=== PATIENT | male | born 1945 | race Caucasian/White ===

== ENCOUNTER 2018-09-10 11:53 | Emergency (ER) | payer MEDICARE, OTHER ==
[~2018-09-10] VITALS: Ht 167.6 cm; Wt 73.0 kg
[2018-09-10] MEDS ORDERED: NS IV 500 ML 500 ML IV ONE (12:26)
[2018-09-10 12:34] LABS: BASOPHILS % (AUTO) 0 % (0-10); EOSINOPHILS # (AUTO) 0.1 10^3/uL (0.0-0.3); EOSINOPHILS % (AUTO) 1 % (0-10); HEMATOCRIT 43 % (40-54); HEMOGLOBIN 14.7 G/DL (13.3-17.7); LYMPHOCYTES % (AUTO) 25 % (12-44); MEAN CORPUSCULAR HEMOGLOBIN 32 PG (25-34); MEAN CORPUSCULAR HGB CONC 35 G/DL (32-36); MEAN CORPUSCULAR VOLUME 92 FL (80-99); MEAN PLATELET VOLUME 9.8 FL (7.4-10.4); MONOCYTES # (AUTO) 0.7 X 10^3 (0.0-1.0); MONOCYTES % (AUTO) 9 % (0-12); NEUTROPHILS % (AUTO) 64 % (42-75); PLATELET COUNT 206 10^3/uL (130-400); RED CELL DISTRIBUTION WIDTH 12.8 % (10.0-14.5); WHITE BLOOD COUNT 7.8 10^3/uL (4.3-11.0)
--- NOTE | 2018-09-10 12:45 | Diagnostic Imaging Report ---
INDICATION: Syncope. COMPARISON: None. FINDINGS: Single view of the chest demonstrates minimal cardiac enlargement. Lungs are clear. There is a benign-appearing nodule in the right base. There is no pneumothorax or effusion. The pacemaker is stable. Sternotomy wires are midline. IMPRESSION: Cardiac enlargement without pulmonary edema or infiltrate. Dictated by: Dictated on workstation # [id number]
[2018-09-10 12:56] LABS: ALANINE AMINOTRANSFERASE 20 U/L (0-55); ALBUMIN 3.9 GM/DL (3.2-4.5); ALKALINE PHOSPHATASE 50 U/L (40-136); BILIRUBIN,TOTAL 0.7 MG/DL (0.1-1.0); BUN/CREATININE RATIO 24; CARBON DIOXIDE 24 MMOL/L (21-32); CHLORIDE 105 MMOL/L (98-107); CREATININE SERUM 0.96 MG/DL (0.60-1.30); GFR ESTIMATED > 60; GLUCOSE 88 MG/DL (70-105); POTASSIUM 3.7 MMOL/L (3.6-5.0); SODIUM 140 MMOL/L (135-145)
[2018-09-10 13:43] LABS: BILIRUBIN,URINE NEGATIVE (NEGATIVE); CLARITY,URINE CLEAR; COLOR,URINE YELLOW; GLUCOSE, URINE (UA) NEGATIVE (NEGATIVE); KETONES,URINE NEGATIVE (NEGATIVE); LEUKOCYTE ESTERASE ,URINE NEGATIVE (NEGATIVE); NITRITE,URINE NEGATIVE (NEGATIVE); PH,URINE 5 (5-9); PROTEIN,URINE NEGATIVE (NEGATIVE); UROBILINOGEN,URINE 1 MG/DL (NORMAL)
[2018-09-10 13:50] LABS: BACTERIA,URINE NEGATIVE /HPF
[2018-09-10] MEDS ORDERED: IOHEXOL 350 MG/ML 150 ML (OMNIPAQUE 350) VIAL IV ONE (14:15)
[2018-09-10] MEDS ORDERED: RECEIVED CONTRAST (Hold Metformin) IV SCH (14:15)
[2018-09-10] MEDS ORDERED: CATHETER FLUSH 10 ML SYR IV PRN (14:15)
[2018-09-10] MEDS ORDERED: NS 100 ML (IVPB) BAG IV ONE (14:15)
--- NOTE | 2018-09-10 15:14 | Diagnostic Imaging Report ---
PROCEDURE: CT angiography of the chest with contrast and CT abdomen and pelvis with contrast. TECHNIQUE: Multiple contiguous axial images were obtained through the chest, abdomen and pelvis after administration of intravenous contrast. Reconstructed MIP CT angiography acquisitions of the aorta were then performed. INDICATION: History of aneurysm and two heart surgeries. Pacemaker. Dizziness, lightheaded. CORRELATION STUDY: None. FINDINGS: Patient is poststernotomy. 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 Heart size is mildly enlarged. No pericardial effusion. A few mildly prominent but non-pathologically enlarged mediastinal lymph nodes are present. Calcified granulomas are present within the mediastinum. Right-sided pacemaker. There are surgical changes of the aortic valve. The thoracic aorta demonstrates mild wall calcification. No significant aneurysm dilatation. No intraluminal filling defect to reflect dissection. Normal branching pattern at the level of the aortic arch. The abdominal aorta demonstrates mild wall calcification and atheromatous changes to be present. The [place] demonstrate no aneurysmal dilatation. No intraluminal abnormality to reflect dissection. Celiac trunk, superior mesenteric artery and bilateral renal arteries along with inferior mesenteric artery are patent at their origins. Moderate calcification at the aortic bifurcation. Moderate calcification of the common, internal and external iliac arteries is present. No abnormal periaortic fluid collection. The lung pacheco have calcified granuloma. No significant lobar consolidating infiltrate. No pleural effusion. Minimal pleural thickening. Diffuse low attenuation parenchyma suggestive of fatty steatosis. Cholecystectomy clips. Spleen, pancreas and adrenal glands are unremarkable. Low-density mass in the right kidney compatible with a cyst. Renal parenchyma is otherwise unremarkable. No hydronephrosis. The gastrointestinal tract demonstrates no obstruction. Colonic diverticulosis but no evidence for acute diverticulitis. Urinary bladder is unremarkable. Prostate gland is unremarkable for the patient's age. S-type thoracolumbar scoliotic curvature along with advanced degenerative changes about the lumbar spine. Posterior fusion hardware at L3-S1. IMPRESSION: 1. CTA of the chest, abdomen and pelvis demonstrates the thoracic aorta to have mild wall calcification. No significant aneurysmal or evidence for dissection. 2. Negative for acute abnormality about the chest, abdomen and/or pelvis. Dictated by: Dictated on workstation # [id number]
--- NOTE | 2018-09-10 15:19 | ED General ---
General Chief Complaint: Dizziness/Syncope Stated Complaint: BP 161/89 /LIGHTHEADED/NAUSEA Nursing Triage Note: PT TO ED W/ C/O LIGHTHEADEDNESS, DIZZINESS, SHAKING ONSET WHILE AT [facility] THIS AM. REPORTS HAD BP CHECKED W/ ONSET OF SYMPTOMS ET IT WAS 161/89. PT DOES REPORT HX OF AAA ET CABG W/IN THE LAST 4 YRS. NO OTHER C/O VOICED AT THIS TIME. Nursing Sepsis Screen: No Definite Risk Source of Information: Patient Exam Limitations: No Limitations History of Present Illness Date Seen by Provider: Sep 10, 2018 Time Seen by Provider: 13:40 Initial Comments Here with report of dizziness, weakness and abdominal discomfort today while at [facility]. His blood pressure was noted to be high after that. Does have history of aortic aneurysm that apparently was at the takeoff from the heart. He had that repaired. He also had prior stenting due to cardiac problems prior to that. Denies vomiting but was nauseated. Denies diarrhea. Reports eating and drinking okay but states that he gets accused of being dehydrated quite a bit. Timing/Duration: 1 Hour, Changing Over Time, Other (better now) Severity: Moderate Associated Systoms: No Chest Pain, No Fever/Chills; Nausea/Vomiting; No Shortness of Air; Weakness Allergies and Home Medications Allergies Coded Allergies: No Known Drug Allergies (Unverified , 09/10/18) Patient Home Medication List Home Medication List Reviewed: Yes Review of Systems Review of Systems Constitutional: see HPI EENTM: no symptoms reported Respiratory: No short of breath, No wheezing Cardiovascular: No chest pain, No edema Gastrointestinal: abdominal pain; No nausea, No vomiting Genitourinary: no symptoms reported Musculoskeletal: no symptoms reported Skin: no symptoms reported Psychiatric/Neurological: No Symptoms Reported All Other Systems Reviewed Negative Unless Noted: Yes Past Pjhonhz-Ohiyxm-Jacbyf Hx Past Med/Social Hx: Reviewed Nursing Past Med/Soc Hx Patient Social History Alcohol Use: Denies Use Recreational Drug Use: No Smoking Status: Former Smoker Type Used: Cigarettes Former Smoker, Quit: May 04, 2015 Recent Foreign Travel: No Contact w/Someone Who Travel: No Recent Infectious Disease Expo: No Recent Hopitalizations: No Past Medical History Surgeries: Yes (AAA, RASHAUN, ROTATOR CUFF, BACK, HERNIA REPAIR) CABG, Vascular Surgery Respiratory: No Cardiac: Yes (AAA, CABG) Neurological: Yes TIA Genitourinary: No Gastrointestinal: No Musculoskeletal: Yes Degenerate Disk Disease Endocrine: No HEENT: Yes Cataract Cancer: Yes Skin Psychosocial: No Integumentary: No Family Medical History Reviewed Nursing Family Hx Physical Exam Vital Signs Vital Signs - First Documented 09/10/18 11:58 Temp 96.5 Pulse 68 Resp 18 B/P (MAP) 139/88 (105) Pulse Ox 95 O2 Delivery Room Air Capillary Refill : Less Than 3 Seconds Height, Weight, BMI Height: 5'6.00" Weight: 161lbs. oz. 73.191656fh; BMI Method:Stated General Appearance: No Apparent Distress, WD/WN HEENT: PERRL/EOMI, Pharynx Normal Neck: Non Tender, Supple Respiratory: Lungs Clear, Normal Breath Sounds Cardiovascular: Regular Rate, Rhythm, No Murmur Gastrointestinal: Non Tender, Soft Back: Normal Inspection, No CVA Tenderness, No Vertebral Tenderness Extremity: Normal Capillary Refill, Normal Inspection, Normal Range of Motion, Non Tender Neurologic/Psychiatric: Alert, Oriented x3 Skin: Normal Color, Warm/Dry Progress/Results/Core Measures Suspected Sepsis Recent Fever Within 48 Hours: No Infection Criteria Present: None New/Unexplained Altered Menta: No Sepsis Screen: No Definite Risk SIRS Temperature:96.5 Pulse: 68 Respiratory Rate: 18 Laboratory Tests 09/10/18 12:25: White Blood Count 7.8 Blood Pressure 139 /88 Mean: 105 Laboratory Tests 09/10/18 12:25: Creatinine 0.96, Platelet Count 206, Total Bilirubin 0.7 Results/Orders Lab Results Laboratory Tests Test 09/10/18 12:25 09/10/18 13:32 Range/Units White Blood Count 7.8 4.3-11.0 10^3/uL Red Blood Count 4.63 4.35-5.85 10^6/uL Hemoglobin 14.7 13.3-17.7 G/DL Hematocrit 43 40-54 % Mean Corpuscular Volume 92 80-99 FL Mean Corpuscular Hemoglobin 32 25-34 PG Mean Corpuscular Hemoglobin Concent 35 32-36 G/DL Red Cell Distribution Width 12.8 10.0-14.5 % Platelet Count 206 130-400 10^3/uL Mean Platelet Volume 9.8 7.4-10.4 FL Neutrophils (%) (Auto) 64 42-75 % Lymphocytes (%) (Auto) 25 12-44 % Monocytes (%) (Auto) 9 0-12 % Eosinophils (%) (Auto) 1 0-10 % Basophils (%) (Auto) 0 0-10 % Neutrophils # (Auto) 5.0 1.8-7.8 X 10^3 Lymphocytes # (Auto) 2.0 1.0-4.0 X 10^3 Monocytes # (Auto) 0.7 0.0-1.0 X 10^3 Eosinophils # (Auto) 0.1 0.0-0.3 10^3/uL Basophils # (Auto) 0.0 0.0-0.1 10^3/uL D-Dimer 1.04 H 0.00-0.49 UG/ML Sodium Level 140 135-145 MMOL/L Potassium Level 3.7 3.6-5.0 MMOL/L Chloride Level 105 98-107 MMOL/L Carbon Dioxide Level 24 21-32 MMOL/L Anion Gap 11 5-14 MMOL/L Blood Urea Nitrogen 23 H 7-18 MG/DL Creatinine 0.96 0.60-1.30 MG/DL Estimat Glomerular Filtration Rate > 60 BUN/Creatinine Ratio 24 Glucose Level 88 70-105 MG/DL Calcium Level 9.0 8.5-10.1 MG/DL Corrected Calcium 9.1 8.5-10.1 MG/DL Total Bilirubin 0.7 0.1-1.0 MG/DL Aspartate Amino Transf (AST/SGOT) 19 5-34 U/L Alanine Aminotransferase (ALT/SGPT) 20 0-55 U/L Alkaline Phosphatase 50 40-136 U/L Troponin I < 0.028 <0.028 NG/ML Total Protein 7.0 6.4-8.2 GM/DL Albumin 3.9 3.2-4.5 GM/DL Urine Color YELLOW Urine Clarity CLEAR Urine pH 5 5-9 Urine Specific [place] 1.020 1.016-1.022 Urine Protein NEGATIVE NEGATIVE Urine Glucose (UA) NEGATIVE NEGATIVE Urine Ketones NEGATIVE NEGATIVE Urine Nitrite NEGATIVE NEGATIVE Urine Bilirubin NEGATIVE NEGATIVE Urine Urobilinogen 1 NORMAL MG/DL Urine Leukocyte Esterase NEGATIVE NEGATIVE Urine RBC (Auto) NEGATIVE NEGATIVE Urine RBC NONE /HPF Urine WBC NONE /HPF Urine Squamous Epithelial Cells NONE /HPF Urine Crystals NONE /LPF Urine Bacteria NEGATIVE /HPF Urine Casts NONE /LPF Urine Mucus NEGATIVE /LPF Urine Culture Indicated NO My Orders Orders - JULIANA LIANG MD Cbc With Automated Diff (09/10/18 12:26) Comprehensive Metabolic Panel (09/10/18 12:26) Fibrin Degradation Products (09/10/18 12:26) Troponin I (09/10/18 12:26) Ua Culture If Indicated (09/10/18 12:26) Chest 1 View, Ap/Pa Only (09/10/18 12:26) Saline Lock/Iv-Start (09/10/18 12:26) Ns Iv 500 Ml (Sodium Chloride 0.9%) (09/10/18 12:26) Ekg Tracing (09/10/18 12:26) Ct Angio Chst/Abd/Pelv W (09/10/18 13:54) Iohexol Injection (Omnipaque 350 Mg/Ml 1 (09/10/18 14:15) Contrast Received (Contrast Received) (09/10/18 14:15) Sodium Chloride Flush (Catheter Flush Sy (09/10/18 14:15) Ns (Ivpb) (Sodium Chloride 0.9% Ivpb Bag (09/10/18 14:15) Medications Given in ED Current Medications Medications Dose Ordered Sig/Sonam Route Start Time Stop Time Status Last Admin Dose Admin Iohexol 150 ml ONCE ONCE IV 09/10/18 14:15 09/10/18 14:16 DC 09/10/18 14:30 125 ML Sodium Chloride 10 ml NEEDED PRN IV 09/10/18 14:15 09/10/18 14:30 10 ML Sodium Chloride 100 ml ONCE ONCE IV 09/10/18 14:15 09/10/18 14:16 DC 09/10/18 14:30 80 ML Sodium Chloride 500 ml @ 0 mls/hr Q0M ONCE IV 09/10/18 12:26 09/10/18 12:29 DC 09/10/18 13:09 500 MLS/HR Vital Signs/I&O 09/10/18 11:58 Temp 96.5 Pulse 68 Resp 18 B/P (MAP) 139/88 (105) Pulse Ox 95 O2 Delivery Room Air Capillary Refill : Less Than 3 Seconds Blood Pressure Mean: 105 Progress Note : Progress Note Seen and evaluated. IV, labs, EKG, chest x-ray and normal saline 500 mL bolus ordered. UA ordered. We will go ahead and get a CT angiogram chest, abdomen and pelvis due to aortic aneurysm history and new concerns. Patient and family were very appreciative of that. Monitor patient. 1530: Patient overall much improved. No significant findings on CT. Patient states that he can drink and we will let him continue to hydrate at home. Discharged home with return precautions. Patient verbalize understanding instructions and agreement with plan. ECG Initial ECG Impression Date: Sep 10, 2018 Initial ECG Impression Time: 12:16 Initial ECG Rate: 66 Comment Ventricular paced rhythm at 66. Normal axis. No evidence of ST elevation [place]. No previous available for comparison. Interpreted by me. Diagnostic Imaging Diagonstic Imaging: Xray Plain Films/CT/US/NM/MRI: chest Comments NAME: RHONDA GONZALES MED REC#: [id number] PT STATUS: REG ER : 1945 PHYSICIAN: JULIANA LIANG MD ADMIT DATE: 09/10/18/ER Signed Date of Exam: 09/10/18 CHEST 1 VIEW, AP/PA ONLY INDICATION: Syncope. COMPARISON: None. FINDINGS: Single view of the chest demonstrates minimal cardiac enlargement. Lungs are clear. There is a benign-appearing nodule in the right base. There is no pneumothorax or effusion. The pacemaker is stable. Sternotomy wires are midline. IMPRESSION: Cardiac enlargement without pulmonary edema or infiltrate. Dictated by: Dictated on workstation # [id number] Dict: 09/10/18 1240 Trans: 09/10/18 1330 Interpreted by: STUART GOMEZ Electronically signed by: STUART GOMEZ 09/10/18 1330 Diagonstic Imaging: CT Plain Films/CT/US/NM/MRI: chest, abdomen, pelvis Comments [facility]. [place], [place] NAME: RHONDA GONZALES Danielle MED REC#: [id number] PT STATUS: REG ER : 1945 PHYSICIAN: JULIANA LIANG MD ADMIT DATE: 09/10/18/ER Draft Date of Exam:09/10/18 CT ANGIO CHST/ABD/PELV W PROCEDURE: CT angiography of the chest with contrast and CT abdomen and pelvis with contrast. TECHNIQUE: Multiple contiguous axial images were obtained through the chest, abdomen and pelvis after administration of intravenous contrast. Reconstructed MIP CT angiography acquisitions of the aorta were then performed. INDICATION: History of aneurysm and two heart surgeries. Pacemaker. Dizziness, lightheaded. CORRELATION STUDY: None. FINDINGS: Patient is poststernotomy. 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 Heart size is mildly enlarged. No pericardial effusion. A few mildly prominent but non-pathologically enlarged mediastinal lymph nodes are present. Calcified granulomas are present within the mediastinum. Right-sided pacemaker. There are surgical changes of the aortic valve. The thoracic aorta demonstrates mild wall calcification. No significant aneurysm dilatation. No intraluminal filling defect to reflect dissection. Normal branching pattern at the level of the aortic arch. The abdominal aorta demonstrates mild wall calcification and atheromatous changes to be present. The [place] demonstrate no aneurysmal dilatation. No intraluminal abnormality to reflect dissection. Celiac trunk, superior mesenteric artery and bilateral renal arteries along with inferior mesenteric artery are patent at their origins. Moderate calcification at the aortic bifurcation. Moderate calcification of the common, internal and external iliac arteries is present. No abnormal periaortic fluid collection. The lung pacheco have calcified granuloma. No significant lobar consolidating infiltrate. No pleural effusion. Minimal pleural thickening. Diffuse low attenuation parenchyma suggestive of fatty steatosis. Cholecystectomy clips. Spleen, pancreas and adrenal glands are unremarkable. Low-density mass in the right kidney compatible with a cyst. Renal parenchyma is otherwise unremarkable. No hydronephrosis. The gastrointestinal tract demonstrates no obstruction. Colonic diverticulosis but no evidence for acute diverticulitis. Urinary bladder is unremarkable. Prostate gland is unremarkable for the patient's age. S-type thoracolumbar scoliotic curvature along with advanced degenerative changes about the lumbar spine. Posterior fusion hardware at L3-S1. IMPRESSION: 1. CTA of the chest, abdomen and pelvis demonstrates the thoracic aorta to have mild wall calcification. No significant aneurysmal or evidence for dissection. 2. Negative for acute abnormality about the chest, abdomen and/or pelvis. Dictated on workstation # [id number] Dict: 09/10/18 1448 Trans: 09/10/18 1514 [id number] Interpreted by: BRANDY LEACH DO Electronically signed by: Departure Impression Primary Impression: Abdominal pain Qualified Codes: R10.9 - Unspecified abdominal pain Additional Impressions: Dizziness Labile blood pressure Disposition: HOME, SELF-CARE Condition: Improved Departure-Patient Inst. Decision time for Depature: 15:35 Referrals: FELICIA LAIRD MD (PCP/Family) Primary Care Physician Patient Instructions: Dizziness, Nonvertigo, (DC), Generalized Weakness (DC) Add. Discharge Instructions: All discharge instructions reviewed with patient and/or family. Voiced understanding. Clear liquids or light diet tonight and then advance as tolerated. Follow up with your Dr. in a few days for recheck. Return for worse pain, fever, vomiting , weakness, breathing problems or other concerns as needed. Continue previously prescribed medicines as directed. JULIANA LIANG MD Sep 10, 2018 15:19
--- NOTE | 2018-09-10 15:21 | NUR ---
PT RESTING QUIETLY, FAMILY AT BEDSIDE. NO C/O VOICED
--- NOTE | 2018-09-10 15:35 | NUR ---
PT UP TO BR AT THIS TIME.
--- NOTE | 2018-09-10 15:40 | NUR ---
HL DISCONTINUED BY THIS RN. REGISTRATION AT BEDSIDE.
[2018-09-10 15:46] VITALS: BP 125/78
--- NOTE | 2018-09-10 15:46 | NUR ---
PT DISCHARGED TO HOME W/ INSTRUCTIONS. PT TO CONTINUE MEDS DIRECTED, F/U W/ PCP ET RETURN IF SYMPTOMS CHANGE OR GET WORSE. UNDERSTANDING VOICED. NO QUESTIONS.
== END 2018-09-10 15:46 | disposition home or self-care (01) ==
LOC: ER 11:55
DX: R10.9 Unspecified abdominal pain (principal); R42 Dizziness and giddiness; R03.0 Elevated blood-pressure reading, without diagnosis of hypertension; Z86.79 Personal history of other diseases of the circulatory system; Z87.891 Personal history of nicotine dependence; Z95.1 Presence of aortocoronary bypass graft; Z98.890 Other specified postprocedural states; Z86.73 Personal history of transient ischemic attack (TIA), and cerebral infarction without residual deficits; Z85.828 Personal history of other malignant neoplasm of skin
CPT/HCPCS: 36415; 71045; 71275; 74174; 80053; 81000; 84484; 85025; 85379

== ENCOUNTER → 2018-10-20 | Emergency (ER) | payer MEDICARE, OTHER ==
[~2018-10-20] VITALS: Ht 167.6 cm; Wt 74.4 kg
[~2018-10-20] MED LIST: IOHEXOL 350 MG/ML 150 ML (OMNIPAQUE 350) VIAL IV ONE; NS 50 ML (IVPB) BAG IV ONE; ONDANSETRON 4 MG/2 ML (SDV) Z0FRAN IVP STA; PRD20T PO; methylPREDNISolone 125 MG (Solu-MEDROL) VIAL IVP ONE; morphine INJ 10 MG/ML 1ML (SYR OR VIAL) IVP STA
--- NOTE | 2018-10-20 04:36 | ED Chest Pain ---
General Chief Complaint: Chest Pain Stated Complaint: CHEST PAIN RT SIDE History of Present Illness Date Seen by Provider: Oct 20, 2018 Time Seen by Provider: 04:19 This is a 73-year-old man with a stated history of aortic dissection status post repair, CAD status post CABG, pacemaker, on Eliquis, here for right-sided chest pain with deep inspiration. He has no pain at rest, nor with regular breathing. He was treated 2 months ago for possible pneumonia when he had the same symptoms which lasted for about a week, and which had gone completely away until tonight. He does not feel short of breath. He has not had unilateral leg swelling. Denies history of blood clots. No cough or fever or hemoptysis. This is nonexertional. No lightheadedness or nausea or diaphoresis. No paresthesias in the extremities. The pain is not migratory. This does not feel like the pain he had when he had an aortic dissection. (MIGUEL ROJO DO) Allergies and Home Medications Allergies Coded Allergies: No Known Drug Allergies (Unverified , 09/10/18) Home Medications Prednisone 20 Mg Tab, 40 MG PO DAILY Prescribed by: RICCARDO BRAUN on 10/20/18 0736 Patient Home Medication List Home Medication List Reviewed: Yes (MIGUEL ROJO DO) Review of Systems Review of Systems Constitutional: no symptoms reported EENTM: No Symptoms Reported Respiratory: See HPI Cardiovascular: See HPI Gastrointestinal: No Symptoms Reported Genitourinary: No Symptoms Reported Musculoskeletal: no symptoms reported Skin: no symptoms reported Psychiatric/Neurological: No Symptoms Reported Endocrine: No Symptoms Reported Hematologic/Lymphatic: No Symptoms Reported (MIGUEL ROJO DO) Past Uhnauvl-Uwngaj-Psphxc Hx Past Med/Social Hx: Reviewed Nursing Past Med/Soc Hx (MIGUEL ROJO DO) Patient Social History Type Used: Cigarettes Former Smoker, Quit: May 04, 2015 Recent Foreign Travel: No Contact w/Someone Who Travel: No Recent Hopitalizations: No (MIGUEL ROJO DO) Past Medical History Surgeries: Yes (AAA, RASHAUN, ROTATOR CUFF, BACK, HERNIA REPAIR) CABG, Vascular Surgery Respiratory: No Cardiac: Yes (AAA, CABG) Neurological: Yes TIA Genitourinary: No Gastrointestinal: No Musculoskeletal: Yes Degenerate Disk Disease Endocrine: No HEENT: Yes Cataract Cancer: Yes Skin Psychosocial: No Integumentary: No (MIGUEL ROJO DO) Physical Exam Vital Signs Vital Signs - First Documented 10/20/18 04:35 Temp 97.9 Pulse 66 Resp 16 B/P (MAP) 155/83 (107) Pulse Ox 97 O2 Delivery Room Air (RICCARDO BRAUN MD) Vital Signs Capillary Refill : (MIGUEL ROJO DO) Height, Weight, BMI Height: 5'6.00" Weight: 161lbs. oz. 73.854923pn; BMI Method:Stated General Appearance: No Apparent Distress (no visible discomfort, smiling and laughing) HEENT: PERRL/EOMI, Moist Mucous Membranes Neck: Supple; No JVD Respiratory: Chest Non Tender, Lungs Clear, No Accessory Muscle Use, No Respiratory Distress; No Rales, No Rhonci, No Stridor, No Wheezing Cardiovascular: Regular Rate, Rhythm, No Edema, No Murmur, Normal Peripheral Pulses Gastrointestinal: Non Tender, Soft Extremity: Non Tender Neurologic/Psychiatric: Alert, Oriented x3, No Motor/Sensory Deficits, Normal Mood/Affect Skin: Warm/Dry (MIGUEL ROJO DO) Progress/Results/Core Measures Results/Orders Lab Results Laboratory Tests Test 10/20/18 04:21 Range/Units White Blood Count 7.4 4.3-11.0 10^3/uL Red Blood Count 4.88 4.35-5.85 10^6/uL Hemoglobin 15.4 13.3-17.7 G/DL Hematocrit 45 40-54 % Mean Corpuscular Volume 93 80-99 FL Mean Corpuscular Hemoglobin 32 25-34 PG Mean Corpuscular Hemoglobin Concent 34 32-36 G/DL Red Cell Distribution Width 12.5 10.0-14.5 % Platelet Count 160 130-400 10^3/uL Mean Platelet Volume 10.3 7.4-10.4 FL Prothrombin Time 15.8 H 12.2-14.7 SEC INR Comment 1.3 0.8-1.4 Activated Partial Thromboplast Time 44 H 24-35 SEC Sodium Level 139 135-145 MMOL/L Potassium Level 3.6 3.6-5.0 MMOL/L Chloride Level 100 98-107 MMOL/L Carbon Dioxide Level 21 21-32 MMOL/L Anion Gap 18 H 5-14 MMOL/L Blood Urea Nitrogen 18 7-18 MG/DL Creatinine 0.98 0.60-1.30 MG/DL Estimat Glomerular Filtration Rate > 60 BUN/Creatinine Ratio 18 Glucose Level 112 H 70-105 MG/DL Calcium Level 9.0 8.5-10.1 MG/DL Corrected Calcium 9.0 8.5-10.1 MG/DL Total Bilirubin 0.6 0.1-1.0 MG/DL Aspartate Amino Transf (AST/SGOT) 18 5-34 U/L Alanine Aminotransferase (ALT/SGPT) 13 0-55 U/L Alkaline Phosphatase 52 40-136 U/L Troponin T 15 <=15 NG/L Total Protein 7.2 6.4-8.2 GM/DL Albumin 4.0 3.2-4.5 GM/DL (RICCARDO BRAUN MD) My Orders Orders - RICCARDO BRAUN MD Methylprednisolone Sod Succ (Solu-Medrol (10/20/18 07:45) (RICCARDO BRAUN MD) Medications Given in ED Current Medications Medications Dose Ordered Sig/Sonam Route Start Time Stop Time Status Last Admin Dose Admin Iohexol 125 ml ONCE ONCE IV 10/20/18 04:45 10/20/18 04:46 DC 10/20/18 06:02 125 ML Sodium Chloride 50 ml ONCE ONCE IV 10/20/18 04:45 10/20/18 04:46 DC 10/20/18 06:03 40 ML (RICCARDO BRAUN MD) Vital Signs/I&O 10/20/18 04:35 Temp 97.9 Pulse 66 Resp 16 B/P (MAP) 155/83 (107) Pulse Ox 97 O2 Delivery Room Air (RICCARDO BRAUN MD) Progress Progress Note #1: Progress Note Patient is very well-appearing and not in visible distress or discomfort. Given history I think it is prudent to obtain a CT angiogram to rule out aortic graft leak. Details are somewhat limited, there is a CT angiogram from 1 month ago that showed the abdominal aorta to be nonaneurysmal and demonstrated the aortic valve status post repair. Symptoms are atypical for ACS. He is low risk for PE and is currently anticoagulated. Pneumonia is a consideration as is pericarditis. Treated with a low-dose of morphine, we will continue to monitor. Progress Note #2: Progress Note BP improved to the 130s over 70s. Pain improved. Care signed out to oncoming provider at 6 AM with CTA read pending. (MIGUEL ROJO DO) Progress Note #1: Time: 06:15 Progress Note I assumed care from Dr. Rojo at 0600 shift change. I reviewed record and test results so far. I agree with paced rhythm on ECG and no acute finding on CXR. Labs show Troponin T is 15 so it is at upper limit of normal. CBC still pending. Pt returning from CTA chest shortly after my arrival in the Department and reading pending. Progress Note #2: Time: 07:30 Progress Note I spent time in the room discussing results with the patient and his . His CBC came back and was normal without acute significant abnormality. CTA chest preliminary report was negative for PE. There was no definite infiltrate or consolidation. He might have a trace amount of pulmonary edema in his bases. Will have him check with the Youth Probation Officer he follows with in [place]. Have him check back if he has more problems sooner. Will try steroid for a couple of days to see if that helps his pleuritic pain. His string top sealer may want to have him get an updated echocardiogram. if he has worsening pain or more problems check back sooner. (RICCARDO BRAUN MD) EKG : Comment 0423: Regular narrow complex rhythm rate of 63 with a normal axis, approximately normal precordial R-wave progression. Nonspecific change to the T- wave in the lateral precordial leads with artifact in the lateral limb leads. (MIGUEL ROJO DO) Diagnostic Imaging Diagonstic Imaging: Xray Plain Films/CT/US/NM/MRI: chest Comments EP interpretation: Trachea is midline no obvious bony abnormality. There is central vascular congestion and calcification of the aortic knob, otherwise the cardiomediastinal silhouette is unremarkable. The diaphragmatic borders are sharp in the costophrenic angles are well visualized with no effusions. No pneumothoraces. There is a dual chamber pacemaker overlying the right chest without evidence of lead discontinuity. Surgical clips are present over the right chest. Two small nonspecific densities seen over the right lower chest and over the right scapula. Reviewed: Reviewed by Me (MIGUEL ROJO DO) Departure Impression Primary Impression: Pleuritic chest pain Additional Impression: Pulmonary edema Qualified Codes: J81.0 - Acute pulmonary edema Disposition: 01 HOME, SELF-CARE Condition: Improved Departure-Patient Inst. Referrals: FELICIA LAIRD MD (PCP/Family) Primary Care Physician Patient Instructions: Chest Pain That Is Not Caused by the Heart (DC), Pleuritic Chest Pain (DC) Add. Discharge Instructions: Your CT scan showed a trace amount of pulmonary edema so you may want to call your Youth Probation Officer and see if they want to have you follow up with clinic or have an echocardiogram or other testing done. All discharge instructions reviewed with patient and/or family. Voiced understanding. Scripts Prednisone (Prednisone) 20 Mg Tab 40 MG PO DAILY for pleurisy for 2 Days, #4 TAB 0 Refills Prov: RICCARDO BRAUN MD 10/20/18 MIGUEL ROJO DO Oct 20, 2018 04:36 RICCARDO BRAUN MD Oct 20, 2018 06:25
[2018-10-20 05:26] LABS: INR 1.3 (0.8-1.4); PROTHROMBIN TIME PATIENT 15.8 SEC (12.2-14.7)
[2018-10-20 05:27] LABS: ALANINE AMINOTRANSFERASE 13 U/L (0-55); ALKALINE PHOSPHATASE 52 U/L (40-136); BILIRUBIN,TOTAL 0.6 MG/DL (0.1-1.0); BUN/CREATININE RATIO 18; CARBON DIOXIDE 21 MMOL/L (21-32); CHLORIDE 100 MMOL/L (98-107); CREATININE SERUM 0.98 MG/DL (0.60-1.30); GFR ESTIMATED > 60; GLUCOSE 112 MG/DL (70-105); POTASSIUM 3.6 MMOL/L (3.6-5.0); SODIUM 139 MMOL/L (135-145)
[2018-10-20 05:28] LABS: TOTAL PROTEIN 7.2 GM/DL (6.4-8.2)
[2018-10-20 06:22] LABS: HEMOGLOBIN 15.4 G/DL (13.3-17.7); MEAN PLATELET VOLUME 10.3 FL (7.4-10.4); RED CELL DISTRIBUTION WIDTH 12.5 % (10.0-14.5); WHITE BLOOD COUNT 7.4 10^3/uL (4.3-11.0)
[2018-10-20 07:30] VITALS: BP 129/82
--- NOTE | 2018-10-20 08:16 | Diagnostic Imaging Report ---
PROCEDURE: CT angiography of the chest with contrast. TECHNIQUE: Multiple contiguous axial images were obtained through the chest after uneventful bolus administration of intravenous contrast. 2D reconstructed CTA MIP acquisitions were also performed. INDICATION: Chest pain. Correlation is made with prior CT angiogram of the chest from 09/10/2018. A right chest wall cardiac pacemaker is in place. The pulmonary arterial system is without evidence of thromboembolism. No filling defects are seen within central, lobar or segmental branches. The thoracic aorta is normal caliber. No dissection is seen. No pericardial or pleural fluid identified. Parenchymal evaluation demonstrates some dependent atelectasis in the lung bases. There is calcified granuloma in the right middle lobe. No noncalcified mass or infiltrate is identified. Upper abdomen demonstrates a right renal cyst in the upper pole. IMPRESSION: 1. No evidence of pulmonary embolism or thoracic aortic dissection. Dictated by: Dictated on workstation # [id number]
--- NOTE | 2018-10-20 08:17 | Diagnostic Imaging Report ---
Indication: Chest pain. Time of exam: 4:56 AM Correlation is made with prior study from 09/10/2018. Changes of median sternotomy are noted. Right chest wall cardiac pacer is in place. There is calcified granuloma in the right base. No infiltrate is seen. No effusion or pneumothorax. Impression: No acute cardiopulmonary process is detected. Dictated by: Dictated on workstation # [id number]
== END | disposition home or self-care (01) ==
LOC: EDUNIT# 04:14 → ER FS 04:17
DX: R07.81 Pleurodynia (principal); J81.1 Chronic pulmonary edema; I25.10 Atherosclerotic heart disease of native coronary artery without angina pectoris; Z95.1 Presence of aortocoronary bypass graft; Z95.5 Presence of coronary angioplasty implant and graft; Z79.52 Long term (current) use of systemic steroids; Z87.891 Personal history of nicotine dependence; Z98.890 Other specified postprocedural states; Z90.49 Acquired absence of other specified parts of digestive tract; Z86.73 Personal history of transient ischemic attack (TIA), and cerebral infarction without residual deficits; Z85.828 Personal history of other malignant neoplasm of skin
CPT/HCPCS: 36415; 71045; 71275; 80053; 84484; 85027; 85610; 85730; 93005

== ENCOUNTER 2019-02-01 07:20 | Emergency (ER) | payer MEDICARE, OTHER ==
[~2019-02-01] VITALS: Ht 167.6 cm; Wt 74.4 kg
[~2019-02-01 07:20] MED LIST changes: -IOHEXOL 350 MG/ML 150 ML (OMNIPAQUE 350) VIAL IV ONE; -NS 50 ML (IVPB) BAG IV ONE; -ONDANSETRON 4 MG/2 ML (SDV) Z0FRAN IVP STA; -methylPREDNISolone 125 MG (Solu-MEDROL) VIAL IVP ONE; -morphine INJ 10 MG/ML 1ML (SYR OR VIAL) IVP STA
--- OUTSIDE RECORDS SUMMARY | 2019-02-01 07:26 | XMS REPORT | Continuity of Care Document ---
Author Organization Unknown Address Unknown Allergies There is no data. Medications There is no data. Problems There is no data. Procedures There is no data. Results Test Result Range CMP - 12/25/18 11:35 GLUCOSE 71 mg/dL 65-99 UREA NITROGEN (BUN) 14 mg/dL 7-25 CREATININE 0.94 mg/dL 0.70-1.18 eGFR NON-AFR. [place] 80 mL/min/1.73m2 > OR=60 eGFR 93 mL/min/1.73m2 > OR=60 BUN/CREATININE RATIO NOT APPLICABLE (calc) 6-22 SODIUM 138 mmol/L 135-146 POTASSIUM 3.7 mmol/L 3.5-5.3 CHLORIDE 105 mmol/L 98-110 CARBON DIOXIDE 29 mmol/L 20-32 CALCIUM 8.9 mg/dL 8.6-10.3 PROTEIN, TOTAL 6.7 g/dL 6.1-8.1 ALBUMIN 4.0 g/dL 3.6-5.1 GLOBULIN 2.7 g/dL (calc) 1.9-3.7 ALBUMIN/GLOBULIN RATIO 1.5 (calc) 1.0-2.5 BILIRUBIN, TOTAL 0.9 mg/dL 0.2-1.2 ALKALINE PHOSPHATASE 48 U/L 40-115 AST 19 U/L 10-35 ALT 14 U/L 9-46 MAGNESIUM SERUM - 12/25/18 11:35 MAGNESIUM 1.9 mg/dL 1.5-2.5 CBC w/MANUAL DIFF - 12/25/18 11:35 WHITE BLOOD CELL COUNT 5.6 Thousand/uL 3.8-10.8 RED BLOOD CELL COUNT 4.50 Million/uL 4.20-5.80 HEMOGLOBIN 14.4 g/dL 13.2-17.1 HEMATOCRIT 41.7 % 38.5-50.0 MCV 92.7 fL 80.0-100.0 MCH 32.0 pg 27.0-33.0 MCHC 34.5 g/dL 32.0-36.0 RDW 12.2 % 11.0-15.0 PLATELET COUNT 175 Thousand/uL 140-400 MPV 10.5 fL 7.5-12.5 ABSOLUTE NEUTROPHILS 3623 cells/uL [id number] ABSOLUTE MONOCYTES 622 cells/uL 200-950 ABSOLUTE EOSINOPHILS 56 cells/uL 15-500 ABSOLUTE BASOPHILS 0 cells/uL 0-200 NEUTROPHILS 64.7 % NRG LYMPHOCYTES 23.2 % NRG MONOCYTES 11.1 % NRG EOSINOPHILS 1.0 % NRG BASOPHILS 0 % NRG ABSOLUTE LYMPHOCYTES 1299 cells/uL [id number] PLATELET ESTIMATION ADEQUATE ADEQUATE COMMENT(S) NRG Encounters ACCT No. Visit Date/Time Discharge Status Pt. Type Provider Facility Loc./Unit Complaint [id number] 01/31/2019 14:00:00 ACT Outpatient FELICIA LAIRD [facility] [id number] 12/25/2018 11:00:00 Document Registration
--- NOTE | 2019-02-01 07:59 | ED General ---
General Chief Complaint: Cardiac/General Problems Stated Complaint: BP 162/100; SHAKY; LIGHTHEADED Source of Information: Patient, Spouse Exam Limitations: No Limitations History of Present Illness Date Seen by Provider: Feb 01, 2019 Time Seen by Provider: 07:36 Initial Comments Patient presents to ER by private conveyance with chief complaint of feeling weak on exertion, nausea without vomiting and more tired than usual. He has not fallen but he says is felt like he might. No vertiginous symptoms. He says he does get lightheaded when getting up from a lying or seated position and feels like he is going to fall back down if he doesn't take his time. No cough shortness of breath sore throat fever or chills dysuria chest or abdominal pain. He does have a notable history of heart valve replacement, triple bypass CABG, pacemaker, paroxysmal atrial fibrillation and AAA dissection 2017 known to cardiothoracic surgery at [facility] and he sees Dr. Dobbins, cardiology at [facility] and primary care by Dr. Felicia Isaac. January 11 he was taken off of his blood pressure medicine because he was told by his primary doctor he did not need the losartan. He does not take a beta ceasar. In the past week or so he's been checking his blood pressure daily in the morning and he's noticed it is going back up in the 140s systolic. Today however when he felt very weak checked his blood pressure is 160/100 which is the highest ever been for him. Other than losartan that his primary care doctor stopped he has been taking the rest of his medications as prescribed. He denies diarrhea or constipation, black tarry stools or history of anemia. Patient says been drinking a lot of water lately times dehydrated because of his doctor told him to do after stopping his losartan. He does not take diuretics. Patient also remembers that he stopped losartan the same time his doctor started him on Prozac for depression. Allergies and Home Medications Allergies Coded Allergies: cefuroxime (Verified Allergy, Unknown, 02/01/19) codeine (Verified Allergy, Unknown, 02/01/19) promethazine (Verified Allergy, Unknown, 02/01/19) propoxyphene (Verified Allergy, Unknown, 02/01/19) Uncoded Allergies: DARVOCET (Allergy, Unknown, 02/01/19) Home Medications Fluoxetine HCl 20 Mg Capsule, 20 MG PO HS, (Reported) Patient Home Medication List Home Medication List Reviewed: Yes Review of Systems Review of Systems Constitutional: No chills, No diaphoresis, No fever, No malaise; weakness EENTM: No ear discharge, No ear pain Respiratory: No cough, No hemoptysis, No phlegm, No short of breath, No wheezing Cardiovascular: No chest pain, No edema; Hx of Intervention; No palpitations, No syncope; vascular heart diseas Gastrointestinal: No abdominal pain, No constipation, No diarrhea; nausea; No vomiting Genitourinary: No decreased output, No discharge Musculoskeletal: No back pain, No joint pain Skin: No pruritus, No rash Psychiatric/Neurological: Denies Headache, Denies Numbness, Denies Paresthesia, Denies Seizure, Denies Tingling, Denies Tremors; Weakness Hematologic/Lymphatic: Denies Anemia, Denies Blood Clots; Easy Bleeding (eliquis) Past Hvuikqa-Wosevz-Ioracr Hx Patient Social History Alcohol Use: Denies Use Recreational Drug Use: No Smoking Status: Former Smoker Type Used: Cigarettes Former Smoker, Quit: May 04, 2015 Recent Hopitalizations: No Past Medical History Surgeries: Yes (AAA, RASHAUN, ROTATOR CUFF, BACK, HERNIA REPAIR) CABG, Vascular Surgery Respiratory: No Cardiac: Yes (AAA, CABG) Neurological: Yes TIA Genitourinary: No Gastrointestinal: No Musculoskeletal: Yes Degenerate Disk Disease Endocrine: No HEENT: Yes Cataract Cancer: Yes Skin Psychosocial: No Integumentary: No Physical Exam Vital Signs Vital Signs - First Documented 02/01/19 07:27 Temp 98.7 Pulse 76 Resp 16 B/P (MAP) 164/91 (115) Pulse Ox 97 O2 Delivery Room Air Capillary Refill : Height, Weight, BMI Height: 5'6.00" Weight: 164lbs. 0oz. 74.947434bs; BMI Method:Stated General Appearance: WD/WN, Mild Distress Eyes: Bilateral Eye Normal Inspection, Bilateral Eye PERRL, Bilateral Eye EOMI HEENT: PERRL/EOMI, TMs Normal, Normal ENT Inspection, Pharynx Normal; No Moist Mucous Membranes Neck: Full Range of Motion, Normal Inspection, Non Tender, Supple Respiratory: Chest Non Tender, Lungs Clear, Normal Breath Sounds, No Accessory Muscle Use, No Respiratory Distress Cardiovascular: Regular Rate, Rhythm, No Edema, Normal Peripheral Pulses Gastrointestinal: Normal Bowel Sounds, No Organomegaly, No Pulsatile Mass, Non Tender, Soft Extremity: Normal Capillary Refill, Normal Inspection Neurologic/Psychiatric: Alert, Oriented x3, No Motor/Sensory Deficits, Normal Mood/Affect, 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 Norm as Tested Skin: Normal Color, Warm/Dry Progress/Results/Core Measures Suspected Sepsis SIRS Temperature: Pulse: Respiratory Rate: Laboratory Tests 02/01/19 08:00: White Blood Count 6.4 Blood Pressure / Mean: Laboratory Tests 02/01/19 08:00: Creatinine 0.92, INR Comment 1.2, Platelet Count 185, Total Bilirubin 0.7 Results/Orders Lab Results Laboratory Tests Test 02/01/19 08:00 02/01/19 08:57 02/01/19 10:05 Range/Units White Blood Count 6.4 4.3-11.0 10^3/uL Red Blood Count 4.20 L 4.35-5.85 10^6/uL Hemoglobin 13.3 13.3-17.7 G/DL Hematocrit 39 L 40-54 % Mean Corpuscular Volume 93 80-99 FL Mean Corpuscular Hemoglobin 32 25-34 PG Mean Corpuscular Hemoglobin Concent 34 32-36 G/DL Red Cell Distribution Width 12.9 10.0-14.5 % Platelet Count 185 130-400 10^3/uL Mean Platelet Volume 10.0 7.4-10.4 FL Neutrophils (%) (Auto) 71 42-75 % Lymphocytes (%) (Auto) 19 12-44 % Monocytes (%) (Auto) 8 0-12 % Eosinophils (%) (Auto) 2 0-10 % Basophils (%) (Auto) 0 0-10 % Neutrophils # (Auto) 4.5 1.8-7.8 X 10^3 Lymphocytes # (Auto) 1.2 1.0-4.0 X 10^3 Monocytes # (Auto) 0.5 0.0-1.0 X 10^3 Eosinophils # (Auto) 0.1 0.0-0.3 10^3/uL Basophils # (Auto) 0.0 0.0-0.1 10^3/uL Prothrombin Time 15.6 H 12.2-14.7 SEC INR Comment 1.2 0.8-1.4 Activated Partial Thromboplast Time 39 H 24-35 SEC Sodium Level 140 135-145 MMOL/L Potassium Level 3.7 3.6-5.0 MMOL/L Chloride Level 101 98-107 MMOL/L Carbon Dioxide Level 27 21-32 MMOL/L Anion Gap 12 5-14 MMOL/L Blood Urea Nitrogen 15 7-18 MG/DL Creatinine 0.92 0.60-1.30 MG/DL Estimat Glomerular Filtration Rate > 60 BUN/Creatinine Ratio 16 Glucose Level 152 H 70-105 MG/DL Calcium Level 8.8 8.5-10.1 MG/DL Corrected Calcium 9.0 8.5-10.1 MG/DL Magnesium Level 1.6 L 1.8-2.4 MG/DL Total Bilirubin 0.7 0.1-1.0 MG/DL Aspartate Amino Transf (AST/SGOT) 17 5-34 U/L Alanine Aminotransferase (ALT/SGPT) 16 0-55 U/L Alkaline Phosphatase 50 40-136 U/L Troponin I < 0.30 < 0.30 <0.30 NG/ML Pro-B-Type Natriuretic Peptide 811.9 H <75.0 PG/ML Total Protein 6.5 6.4-8.2 GM/DL Albumin 3.7 3.2-4.5 GM/DL Lipase 45 8-78 U/L Urine Color YELLOW Urine Clarity CLEAR Urine pH 6.5 5-9 Urine Specific [place] 1.010 L 1.016-1.022 Urine Protein NEGATIVE NEGATIVE Urine Glucose (UA) NEGATIVE NEGATIVE Urine Ketones NEGATIVE NEGATIVE Urine Nitrite NEGATIVE NEGATIVE Urine Bilirubin NEGATIVE NEGATIVE Urine Urobilinogen 2.0 NORMAL MG/DL Urine Leukocyte Esterase NEGATIVE NEGATIVE Urine RBC (Auto) NEGATIVE NEGATIVE Urine RBC NONE /HPF Urine WBC RARE /HPF Urine Squamous Epithelial Cells RARE /HPF Urine Crystals NONE /LPF Urine Bacteria NEGATIVE /HPF Urine Casts NONE /LPF Urine Mucus NEGATIVE /LPF Urine Culture Indicated NO My Orders Orders - LEE VELAZQUEZ Troponin I (02/01/19 07:49) Chest 1 View Ap/Pa Only (02/01/19 07:49) Ekg Tracing (02/01/19 07:49) Monitor-Rhythm Ecg Trace Only (02/01/19 07:49) Cbc With Automated Diff (02/01/19 07:49) Comprehensive Metabolic Panel (02/01/19 07:49) Lipase (02/01/19 07:49) Magnesium (02/01/19 07:49) Protime With Inr (02/01/19 07:49) Partial Thromboplastin Time (02/01/19 07:49) Ua Culture If Indicated (02/01/19 07:49) Probnp Fs (02/01/19 07:49) Ed Iv/Invasive Line Start (02/01/19 07:49) Ondansetron Injection (Zofran Injectio (02/01/19 08:00) Orthostatic Vital Signs (Adult (02/01/19 07:49) Aspirin Chewable Tablet (Baby Aspirin Ch (02/01/19 08:00) Troponin I (02/01/19 10:00) Medications Given in ED Current Medications Medications Dose Ordered Sig/Sonam Route Start Time Stop Time Status Last Admin Dose Admin Aspirin 324 mg ONCE ONCE PO 02/01/19 08:00 02/01/19 08:01 DC 02/01/19 08:19 324 MG Ondansetron HCl 4 mg ONCE ONCE IVP 02/01/19 08:00 02/01/19 08:01 DC 02/01/19 08:16 4 MG Vital Signs/I&O 02/01/19 02/01/19 02/01/19 07:27 08:15 08:19 Temp 98.7 98.7 Pulse 76 Resp 16 B/P (MAP) 164/91 (115) 134/74 (94) 142/79 (100) 157/77 (103) Pulse Ox 97 O2 Delivery Room Air Capillary Refill : Progress Note #1: Time: 08:00 Progress Note No neurologic deficits, clinical exam reveals he's dry. We'll be concerned about an anemia, dehydration/hypovolemia causing orthostasis versus an occult, atypical coronary presentation. We'll give him some Zofran. She'll some aspirin. His initial EKG does not demonstrate significant ST changes. His blood pressure was in the 150s over 90s when he arrived but after laying down and resting it's 147/75 within 20 minutes. Not sure of being off the losartan would contribute to his symptoms of weakness and nausea. Not having any discomfort or abdominal tenderness. No pulsatile mass palpable or auscultated. With his history of AAA and may be reasonable to keep good control of his blood pressure but something in his history prompted the primary care doctor to discontinue the losartan. He is not on a beta ceasar which would exacerbate orthostasis. We'll obtain some orthostatic vital signs, labs and urine and if we see anemia we'll get a fecal occult stool. Plan to keep him on the monitor but as of now is not in atrial fibrillation. Chest x-ray. He had a CT angiogram done in October which demonstrated no evidence of a thoracic aortic aneurysm. His weakness does not seem to be claudication as he is not having pain in his extremities on exertion just gets tired easily. On Eliquis a pulmonary embolism would be fairly u nlikely. He does not smoke nor have a sedentary lifestyle. Finally he does seem to have a fair amount of anxiety about his blood pressure and elevated which may be further driving up his blood pressure. Plan to interrogate his pacemaker to make sure it working correctly as symptomatic bradycardia could be a source of weakness but were not seeing that presently with the non-paced heart rate in the 60s and 70s. Progress Note #2: Time: 08:58 Progress Note No significant drop in his orthostatic vital signs nor is there a change in heart rate. He stayed in the 60s and 70s and she's been here. Normal sinus rhythm. Patient says is feeling a little better now after getting up and walking to the bathroom and back. We'll see what his urinalysis shows. Initial troponin I is negative. Labs unremarkable for anemia, kidney dysfunction. His BNP is joanna vated at 800 however we have no previous history or compare this to and clinically the patient does not appear to be fluid overload nor does the chest x-ray demonstrated any pulmonary edema. Adverse effect of Prozac? Progress Note #3: Time: 09:24 Progress Note Labs and urine are unremarkable. We are presently waiting for [place] to send somebody to interrogate his pacemaker since there was an issue with sending out the information out through the [employer] locally. Progress Note #4: Time: 11:16 Progress Note Patient was able ambulate to the bathroom again with no problem. He says is feeling better. We have discussed whether or not his Prozac or discontinuation of the losartan might contribute to his symptoms. He is agreed to follow-up with his primary care doctor and/or manual tester before making any chronic medication change decisions. Return precautions were given. ECG Initial ECG Impression Date: Feb 01, 2019 Initial ECG Impression Time: 07:42 Initial ECG Rate: 66 Initial ECG Rhythm: Normal Sinus Initial ECG Intervals: Normal Initial ECG Impression: Normal, Nonspecific Changes Initial ECG Comparisson: Unchanged Comment Sinus rhythm without significant ST elevation or depression. Diagnostic Imaging Diagonstic Imaging: Xray Plain Films/CT/US/NM/MRI: chest (1v) Comments Stable, unremarkable 1 view chest x-ray compared to October and September 3 and 5 months prior to today. There is stable, calcified granuloma in the right base unchanged from previous x-ray. NAME: RHONDA GONZALES [facility] REC#: [id number] PT STATUS: REG ER : 1945 PHYSICIAN: LEE VELAZQUEZ MD ADMIT DATE: 02/01/19/ER FS Draft Date of Exam:02/01/19 CHEST 1 VIEW AP/PA ONLY INDICATION: Elevated blood pressure and dizziness. Time of exam: 7:51 AM Correlation is made with prior chest from 10/20/2018. Changes of median sternotomy and CABG noted. Cardiac pacemaker is in place with lead tips in the region of the right atrium and right ventricle. Calcified nodule right lung base stable and most suggestive of a granuloma. The pulmonary vascularity is unremarkable. No infiltrate, effusion or pneumothorax is detected. IMPRESSION: No acute cardiopulmonary process is detected. Dictated on workstation # [id number] Dict: 02/01/19 0831 Trans: 02/01/19 0836 [facility] [id number] Interpreted by: WILD RITCHIE MD Electronically signed by: Reviewed: Reviewed by Me Departure Impression Primary Impression: Dizzy Additional Impression: Hypertension Qualified Codes: I10 - Essential (primary) hypertension Disposition: 01 HOME, SELF-CARE Condition: Stable Departure-Patient Inst. Decision time for Depature: 11:17 Referrals: FELICIA ISAAC MD (PCP/Family) Primary Care Physician Patient Instructions: Dizziness, Nonvertigo, (DC), High Blood Pressure in Adults Add. Discharge Instructions: Follow-up with your primary care doctor and discuss your symptoms and how they might relate to the recent medication changes. You may also discuss your blood pressure which her manual tester. Return to the nearest ER to begin to experience chest pain, falls, passing out, shortness of breath. All discharge instructions reviewed with patient and/or family. Voiced understanding. Copy Copies To 1: STEPHEN LANGE TITUS J Feb 01, 2019 07:59
[2019-02-01] MEDS ORDERED: ONDANSETRON 4 MG/2 ML (SDV) Z0FRAN IVP ONE (08:00)
[2019-02-01] MEDS ORDERED: ASPIRIN 81 MG CHEW (CHILDREN'S ASA) PO ONE (08:00)
[2019-02-01 08:15] VITALS: BP_SYST 134; BP_SYST 142; BP_SYST 157; BP_DIAS 74; BP_DIAS 77; BP_DIAS 79
[2019-02-01 08:22] LABS: HEMATOCRIT 39 % (40-54); HEMOGLOBIN 13.3 G/DL (13.3-17.7); MEAN CORPUSCULAR HEMOGLOBIN 32 PG (25-34); WHITE BLOOD COUNT 6.4 10^3/uL (4.3-11.0)
[2019-02-01 08:23] LABS: BASOPHILS % (AUTO) 0 % (0-10); EOSINOPHILS # (AUTO) 0.1 10^3/uL (0.0-0.3); EOSINOPHILS % (AUTO) 2 % (0-10); LYMPHOCYTES # (AUTO) 1.2 X 10^3 (1.0-4.0); LYMPHOCYTES % (AUTO) 19 % (12-44); MEAN CORPUSCULAR HGB CONC 34 G/DL (32-36); MEAN CORPUSCULAR VOLUME 93 FL (80-99); MONOCYTES # (AUTO) 0.5 X 10^3 (0.0-1.0); MONOCYTES % (AUTO) 8 % (0-12); NEUTROPHILS # (AUTO) 4.5 X 10^3 (1.8-7.8); NEUTROPHILS % (AUTO) 71 % (42-75); PLATELET COUNT 185 10^3/uL (130-400); RED CELL DISTRIBUTION WIDTH 12.9 % (10.0-14.5)
[2019-02-01 08:36] LABS: INR 1.2 (0.8-1.4); PROTHROMBIN TIME PATIENT 15.6 SEC (12.2-14.7)
--- NOTE | 2019-02-01 08:37 | Diagnostic Imaging Report ---
INDICATION: Elevated blood pressure and dizziness. Time of exam: 7:51 AM Correlation is made with prior chest from 10/20/2018. Changes of median sternotomy and CABG noted. Cardiac pacemaker is in place with lead tips in the region of the right atrium and right ventricle. Calcified nodule right lung base stable and most suggestive of a granuloma. The pulmonary vascularity is unremarkable. No infiltrate, effusion or pneumothorax is detected. IMPRESSION: No acute cardiopulmonary process is detected. Dictated by: Dictated on workstation # [id number]
[2019-02-01 08:49] LABS: ALANINE AMINOTRANSFERASE 16 U/L (0-55); ALKALINE PHOSPHATASE 50 U/L (40-136); BILIRUBIN,TOTAL 0.7 MG/DL (0.1-1.0); BUN/CREATININE RATIO 16; CALCIUM 8.8 MG/DL (8.5-10.1); CARBON DIOXIDE 27 MMOL/L (21-32); CHLORIDE 101 MMOL/L (98-107); CREATININE SERUM 0.92 MG/DL (0.60-1.30); GFR ESTIMATED > 60; GLUCOSE 152 MG/DL (70-105); MAGNESIUM 1.6 MG/DL (1.8-2.4); POTASSIUM 3.7 MMOL/L (3.6-5.0); SODIUM 140 MMOL/L (135-145)
[2019-02-01 08:50] LABS: ALBUMIN 3.7 GM/DL (3.2-4.5); LIPASE 45 U/L (8-78); TOTAL PROTEIN 6.5 GM/DL (6.4-8.2)
[2019-02-01 09:14] LABS: COLOR,URINE YELLOW
[2019-02-01 09:15] LABS: BACTERIA,URINE NEGATIVE /HPF; BILIRUBIN,URINE NEGATIVE (NEGATIVE); CLARITY,URINE CLEAR; GLUCOSE, URINE (UA) NEGATIVE (NEGATIVE); KETONES,URINE NEGATIVE (NEGATIVE); LEUKOCYTE ESTERASE ,URINE NEGATIVE (NEGATIVE); NITRITE,URINE NEGATIVE (NEGATIVE); PH,URINE 6.5 (5-9); PROTEIN,URINE NEGATIVE (NEGATIVE); SQUAMOUS EPITHELIAL CELL,UR RARE /HPF; WBC,URINE RARE /HPF
[2019-02-01] MEDS ORDERED: FLUO20CA25 PO (09:32)
[2019-02-01 11:22] VITALS: BP 156/81
== END 2019-02-01 11:22 | disposition home or self-care (01) ==
LOC: EDUNIT# 07:20 → ER FS 07:23
DX: R42 Dizziness and giddiness (principal); I10 Essential (primary) hypertension; I48.0 Paroxysmal atrial fibrillation; F32.9 Major depressive disorder, single episode, unspecified; Z85.828 Personal history of other malignant neoplasm of skin; Z86.73 Personal history of transient ischemic attack (TIA), and cerebral infarction without residual deficits; Z87.891 Personal history of nicotine dependence; Z88.5 Allergy status to narcotic agent; Z88.1 Allergy status to other antibiotic agents; Z88.8 Allergy status to other drugs, medicaments and biological substances; Z95.1 Presence of aortocoronary bypass graft; Z95.0 Presence of cardiac pacemaker; Z95.2 Presence of prosthetic heart valve
CPT/HCPCS: 36415; 71045; 80053; 81000; 83690; 83735; 83880; 84484; 85025; 85610; 85730; 93005; 93041; 96374

== ENCOUNTER 2019-02-21 16:40 | Emergency (ER) | payer MEDICARE, OTHER | END 2019-02-21 18:38 | disposition home or self-care (01) | LOC: ER FS 16:40 ==

== ENCOUNTER → 2021-09-02 | Outpatient (CLI) | payer MEDICARE, OTHER ==
[~2021-09-02] MED LIST changes: +FLUO10CA29 PO; +FLUO20CA48 PO
--- NOTE | 2021-09-02 09:43 | Diagnostic Imaging Report ---
Indication: Left shoulder pain AP images of the left shoulder are obtained with internal and external rotation. Transscapular view is also obtained. No acute fracture or malalignment is identified. There is no evidence of lytic or sclerotic focus. Visualized left upper lung is also unremarkable. IMPRESSION: No acute abnormality. Dictated by: Dictated on workstation # [id number]
== END ==
LOC: RAD FS 09:22
PROVIDERS: ATTEND Nurse Practitioner
DX: M25.512 Pain in left shoulder (principal)
CPT/HCPCS: 73030

== ENCOUNTER 2021-10-24 20:36 | Emergency (ER) | payer MEDICARE, OTHER ==
[~2021-10-24] VITALS: Ht 167.7 cm; Wt 77.0 kg
[2021-10-24] MEDS ORDERED: CYCLOBENZAPRINE 10 MG (FLEXERIL) TAB PO STA (20:49)
--- NOTE | 2021-10-24 20:55 | ED Back Pain ---
General Chief Complaint: Back Problems Stated Complaint: LOWER BACK PAIN Source of Information: Patient Exam Limitations: No Limitations History of Present Illness Date Seen by Provider: Oct 24, 2021 Time Seen by Provider: 20:39 Initial Comments 76yoM with PMH of CAD s/p CABG, afib on Eliquis now with a pacemaker/defib, AAA s/p repair coming in after he slipped in the ditch the other day picking up trash and landed on his right flank/lower back. Did not hit his head or have LOC. Has been ambulatory since then. Having intermittent moderate aching low back pain. Better with tylenol. Radiates down his right leg. No bowel or bladder issues. Denies any chest pain, SOA, abd pain, n/v/d, weakness, numbness, headache, vision changes, fever, or any other concerns. Allergies and Home Medications Allergies Coded Allergies: cefuroxime (Verified Allergy, Unknown, 02/01/19) codeine (Verified Allergy, Unknown, 02/01/19) promethazine (Verified Allergy, Unknown, 02/01/19) propoxyphene (Verified Allergy, Unknown, 02/01/19) Uncoded Allergies: DARVOCET (Allergy, Unknown, 02/01/19) Patient Home Medication List Home Medication List Reviewed: Yes Fluoxetine HCl (Fluoxetine HCl) 20 Mg Capsule, 20 MG PO HS, (Reported) Entered as Reported by: PATY ROPER on 02/01/19 0932 Fluoxetine HCl (Prozac) 10 Mg Capsule, 10 MG PO DAILY Prescribed by: BABATUNDE TEE on 02/21/19 181 Review of Systems Constitutional: No chills, No fever EENTM: No blurred vision Respiratory: No cough Cardiovascular: No chest pain Gastrointestinal: No abdominal pain Genitourinary: no symptoms reported Musculoskeletal: back pain Skin: no symptoms reported Psychiatric/Neurological: No Symptoms Reported All Other Systems Reviewed Negative Unless Noted: Yes Past Boiwzoh-Kzanzn-Bivapp Hx Patient Social History Tobacco Use?: No Seasonal Allergies Seasonal Allergies: No Past Medical History Surgeries: Yes (AAA, RASHAUN, ROTATOR CUFF, BACK, HERNIA REPAIR) Cardiac, CABG, Vascular Surgery Respiratory: No Cardiac: Yes (AAA, CABG) Aneurysm, Atrial Fibrillation, Heart Attack, High Cholesterol, Hypertension Neurological: Yes TIA Genitourinary: No Gastrointestinal: Yes Gastroesophageal Reflux Musculoskeletal: Yes Degenerate Disk Disease Endocrine: No HEENT: Yes Cataract Cancer: Yes Skin Psychosocial: No Integumentary: No Blood Disorders: No Physical Exam Vital Signs Vital Signs - First Documented 10/24/21 20:45 Temp 36.0 Pulse 86 Resp 20 B/P (MAP) 164/77 (106) Pulse Ox 96 O2 Delivery Room Air Capillary Refill : Height, Weight, BMI Height: 5'6.00" Weight: 154lbs. 0oz. 69.556474ox; BMI Method:Stated General Appearance: No Apparent Distress, WD/WN HEENT: PERRL/EOMI, Normal ENT Inspection, Pharynx Normal Neck: Full Range of Motion, Normal Inspection, Non Tender, Supple Cardiovascular: Regular Rate, Rhythm, No Edema, Normal Peripheral Pulses, Other (normal and equal distal pulses) Respiratory: Chest Non Tender, Lungs Clear, Normal Breath Sounds, No Accessory Muscle Use, No Respiratory Distress Gastrointestinal: Normal Bowel Sounds, Non Tender, Soft; No Distended, No Guarding Back: Normal Inspection, No CVA Tenderness, No Vertebral Tenderness, Other (right lower back pain that is paraspinal) Extremity: Normal Capillary Refill, Normal Inspection, Normal Range of Motion, Non Tender, No Calf Tenderness Neurologic/Psychiatric: Alert, Oriented x3, No Motor/Sensory Deficits, Normal Mood/Affect, technologist infectious disease II-XII Norm as Tested, Other (5/5 strength with hip flexion, knee extension, plantar/dorsiflexion) Skin: Normal Color, Warm/Dry Lymphatic: No Adenopathy Progress/Results/Core Measures Results/Orders My Orders Orders - YOU CHINCHILLA MD Ct Lumbar Spine Wo (10/24/21 20:49) Acetaminophen Tablet (Tylenol Tablet) (10/24/21 21:00) Cyclobenzaprine Tablet (Flexeril Tablet) (10/24/21 20:49) Medications Given in ED Current Medications Medications Dose Ordered Sig/Sonam Route Start Time Stop Time Status Last Admin Dose Admin Acetaminophen 1,000 mg ONCE ONCE PO 10/24/21 21:00 10/24/21 21:01 DC 10/24/21 21:08 1,000 MG Vital Signs/I&O 10/24/21 20:45 Temp 36.0 Pulse 86 Resp 20 B/P (MAP) 164/77 (106) Pulse Ox 96 O2 Delivery Room Air Progress Progress Note : Progress Note 76-year-old male with above history coming in after he had a mechanical fall slipping and landing on his right lower back. This occurred 2 days ago. ABCs were intact, vital stable, GCS 15 on presentation here. Physical exam with some paraspinal tenderness in the right lower back. Neurologic exam is reassuring as well as vascular exam. CT lumbar spine ordered to assess for fracture. This seems more consistent with musculoskeletal given the fall, and I think it is unlikely this is vascular in nature and related to his AAA repair especially given the type of pain he is experiencing and how I am able to reproduce it on exam. He is denying any type of abdominal pain. Given Tylenol for pain as well as Flexeril The CT results came back and did not show anything acute. Included in this is an unremarkable aorta. This is likely muscular pain. I believe he is stable for discharge with outpatient follow-up. He was sent home with strict return precautions.. Diagnostic Imaging Diagonstic Imaging: CT (lumbar spine) Comments NAME: RHONDA GONZALES Danielle [facility] REC#: [id number] PT STATUS: REG ER : 1945 PHYSICIAN: YOU CHINCHILLA MD ADMIT DATE: 10/24/21/ER FS Draft Date of Exam:10/24/21 CT LUMBAR SPINE WO EXAMINATION: CT lumbar spine without contrast. TECHNIQUE: Multiple contiguous axial images were obtained through the lumbar spine without the use of intravenous contrast. Sagittal and coronal reformations were then performed. All CT scans use one or more of the following dose optimizing techniques: automated exposure control, MA and/or KvP adjustment based on patient size and exam type or iterative reconstruction. HISTORY: Fall, back pain. COMPARISON: None available. FINDINGS: There is instrumented posterior fusion of L3-S1. There is anterior interbody fusion at these levels as well. There is severe disc disease at L2-L3 and L1-L2. Vertebral body heights are normal and no fracture is seen. There is no spinal canal stenosis. Limited views of the abdomen and pelvis show no soft tissue abnormality. The aorta is normal. IMPRESSION: No lumbar spine fracture. Dictated on workstation # [id number] Dict: 10/24/212116 Trans: 10/24/212119 [facility] [id number] Interpreted by: DEBORA HERRERA MD Electronically signed by: Departure Impression Primary Impression: Low back pain Qualified Codes: M54.41 - Lumbago with sciatica, right side Disposition: 01 HOME, SELF-CARE Condition: Stable Departure-Patient Inst. Decision time for Depature: 21:25 Referrals: FELICIA LAIRD MD (PCP/Family) Primary Care Physician Patient Instructions: Low Back Pain in Adults Add. Discharge Instructions: Take Tylenol 1000 mg every 6 hours as needed for pain. I wrote a prescription for lidocaine patch which you should place where you hurt the most. You keep this on for 12 hours at a time before changing it out for a new one. If you are still having pain in a couple days then call the spine doctor at [facility] [place] at [phone]. Address is [address] [place] [address], [address], [place] [address] Scripts Lidocaine (Lidocaine 5% Patch) 1 Each Adh..patch 1 EACH TP Q12H PRN for Neuropathic pain MDD 2 for 14 Days, #28 PATCH 2 patches max for 12 hours, then 12 hours patch-free period. Prov: YOU CHINCHILLA MD 10/24/21 Cyclobenzaprine HCl (Cyclobenzaprine HCl) 5 Mg Tablet 5 MG PO HS PRN for SPASMS for 7 Days, #7 TAB Prov: YOU CHINCHILLA MD 10/24/21 YOU CHINCHILLA MD Oct 24, 2021 20:55
[2021-10-24] MEDS ORDERED: ACETAMINOPHEN 500 MG TAB (TYLENOL) PO ONE (21:00)
--- NOTE | 2021-10-24 21:21 | Diagnostic Imaging Report ---
EXAMINATION: CT lumbar spine without contrast. TECHNIQUE: Multiple contiguous axial images were obtained through the lumbar spine without the use of intravenous contrast. Sagittal and coronal reformations were then performed. All CT scans use one or more of the following dose optimizing techniques: automated exposure control, MA and/or KvP adjustment based on patient size and exam type or iterative reconstruction. HISTORY: Fall, back pain. COMPARISON: None available. FINDINGS: There is instrumented posterior fusion of L3-S1. There is anterior interbody fusion at these levels as well. There is severe disc disease at L2-L3 and L1-L2. Vertebral body heights are normal and no fracture is seen. There is no spinal canal stenosis. Limited views of the abdomen and pelvis show no soft tissue abnormality. The aorta is normal. IMPRESSION: No lumbar spine fracture. Dictated by: Dictated on workstation # [id number]
[2021-10-24] MEDS ORDERED: CYCL5TAB PO (21:28)
[2021-10-24] MEDS ORDERED: LIDO700A45 TP (21:28)
[2021-10-24 21:35] VITALS: BP 138/72
== END 2021-10-24 21:35 | disposition home or self-care (01) ==
LOC: EDUNIT# 20:36 → ER FS 20:39
DX: M54.50 Low back pain, unspecified (principal); I48.91 Unspecified atrial fibrillation; Z79.01 Long term (current) use of anticoagulants
CPT/HCPCS: 72131

== ENCOUNTER 2023-01-18 17:30 | Emergency (ER) | payer MEDICARE, OTHER ==
[~2023-01-18 17:30] MED LIST changes: +CYCL5TAB PO; +LIDO700A45 TP
[2023-01-18] MEDS ORDERED: morphine INJ 10 MG/ML 1ML (SYR OR VIAL) IVP STA (17:43)
--- NOTE | 2023-01-18 17:50 | ED Fall/Injury ---
General Chief Complaint: Trauma-Non Activation Stated Complaint: FELL,HIT HEAD/CHIN/LEFT THUMB LAC,JAW PAIN,DIZZY Nursing Triage Note: Patient presents to the ED with c/o fall, dizziness, blurred vision, and left thumb injury. Reports he was mowing the ditch when he tripped and fell on the pavement hitting his chin. No loss of conciousness. Does report having blurred vision and dizziness since fall. Currently takes a blood thinner. Source: patient Exam Limitations: no limitations History of Present Illness Date Seen by Provider: Jan 18, 2023 Time Seen by Provider: 17:32 Initial Comments This 78-year-old gentleman presents to the emergency room after having a fall while mowing the lawn. He stumbled down the slope and struck his face on the asphalt. He denies any loss of consciousness. He has an abrasion on his chin and pain in the left jaw. He denies any neck pain. He did not lose consciousness but had some double vision and dizziness after the injury. He also has a small skin tear on the left thumb. He is anticoagulated on Eliquis. He presented to the urgent care clinic but was directed to the ER for CT imaging due to his anticoagulation. He is not experiencing any concussion symptoms at this time. Location Injury Occurred: Home Allergies and Home Medications Allergies Coded Allergies: cefuroxime (Verified Allergy, Unknown, 02/01/19) codeine (Verified Allergy, Unknown, 02/01/19) promethazine (Verified Allergy, Unknown, 02/01/19) propoxyphene (Verified Allergy, Unknown, 02/01/19) Uncoded Allergies: DARVOCET (Allergy, Unknown, 02/01/19) Patient Home Medication List Home Medication List Reviewed: Yes Cyclobenzaprine HCl (Cyclobenzaprine HCl) 5 Mg Tablet, 5 MG PO HS PRN for SPASMS Prescribed by: YOU CHINCHILLA on 10/24/212127 Fluoxetine HCl (Fluoxetine HCl) 20 Mg Capsule, 20 MG PO HS, (Reported) Entered as Reported by: PATY ROPER on 02/01/19 0932 Fluoxetine HCl (Prozac) 10 Mg Capsule, 10 MG PO DAILY Prescribed by: BABATUNDE TEE on 02/21/19 181 Lidocaine (Lidocaine 5% Patch) 1 Each Adh..patch, 1 EACH TP Q12H PRN for Neuropathic pain Prescribed by: YOU CHINCHILLA on 10/24/212127 Review of Systems Review of Systems Constitutional: no symptoms reported Eyes: See HPI Ears, Nose, Mouth, Throat: no symptoms reported Respiratory: no symptoms reported Cardiovascular: no symptoms reported Gastrointestinal: no symptoms reported Genitourinary: no symptoms reported Musculoskeletal: no symptoms reported Skin: see HPI Psychiatric/Neurological: See HPI Past Bvfixwv-Shomyp-Przkat Hx Patient Social History Tobacco Use?: No Use of E-Cig and/or Vaping dev: No Substance use?: No Alcohol Use?: Yes Alcohol Frequency: Several times a month Pt feels they are or have been: No Immunizations Up To Date First/Initial COVID19 Vaccinat: J&J Second COVID19 Vaccination Lars: J&J Third COVID19 Vaccination Date: J& Seasonal Allergies Seasonal Allergies: No Past Medical History Surgery/Hospitalization HX: Pacemaker/Defibrillator Surgeries: Yes (AAA, RASHAUN, ROTATOR CUFF, BACK, HERNIA REPAIR) Cardiac, CABG, Vascular Surgery (AAA repair) Respiratory: No Cardiac: Yes (AAA, CABG) Aneurysm, Atrial Fibrillation, Heart Attack, High Cholesterol, Hypertension Neurological: Yes TIA Genitourinary: No Gastrointestinal: Yes Gastroesophageal Reflux Musculoskeletal: Yes Degenerate Disk Disease Endocrine: No HEENT: Yes Cataract Cancer: Yes Skin Psychosocial: No Integumentary: No Blood Disorders: No Physical Exam Vital Signs Vital Signs - First Documented 01/18/23 17:40 Temp 36.7 Pulse 83 Resp 16 B/P (MAP) 120/70 (87) Pulse Ox 96 O2 Delivery Room Air Capillary Refill : Less Than 3 Seconds Height, Weight, BMI Height: 5'6.00" Weight: 154lbs. 0oz. 69.253413al; BMI Method:Stated General Appearance: WD/WN, no apparent distress HEENT: PERRL/EOMI, other (Abrasions on the chin. 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 No acute injuries were identified on imaging. The skin tear on the left thumb was cleaned with saline and chlorhexidine and glued by Orville Delaney, MS 2 under my supervision. Patient is up-to-date on his tetanus immunizations. Diagnostic Imaging Diagonstic Imaging: CT Plain Films/CT/US/NM/MRI: facial bones, head Comments NAME: RHONDA GONZALES [facility] REC#: [id number] PT STATUS: REG ER : 1945 PHYSICIAN: PEYTON GARCIA MD ADMIT DATE: 01/18/23/ER FS Signed Date of Exam:01/18/23 CT HEAD/MAXILLOFACIAL WO PROCEDURE: CT head and maxillofacial without contrast. TECHNIQUE: Multiple contiguous axial images were obtained through the head and facial bones without the use of intravenous contrast. Auto Exposure Controls were utilized during the CT exam to meet ALARA standards for radiation dose reduction. INDICATION: Fall, with head and face injury. CT HEAD: FINDINGS: The ventricles and sulci are prominent consistent with the patient's age. No sulcal effacement or midline shift is identified. No acute intra-axial or extra-axial hemorrhage is detected. Cisterns are patent. Visualized paranasal sinuses are clear. IMPRESSION: No acute intracranial process is detected. CT FACE: FINDINGS: The mandible appears to be intact. The zygomatic arches are intact. Maxillary sinus madison, nasal bones, and orbital madison appear to be intact. No facial bone fractures are seen. The visualized paranasal sinuses are clear. Mastoids are well aerated. There does appear to be some mild soft tissue swelling adjacent to the right paramidline mandible, but no fluid collection. IMPRESSION: Mild soft tissue swelling. No facial bone fracture is detected. Dictated by: Dictated on workstation # [id number] Dict: 01/18/231806 Trans: 01/18/231811 [id number] Interpreted by: WILD RITCHIE MD Electronically signed by: WILD RITCHIE MD 01/18/231811 Departure Impression Primary Impression: Fall on same level as cause of accidental injury Additional Impressions: Facial abrasion Qualified Codes: S00.81XA - Abrasion of other part of head, initial encounter Anticoagulated Skin tear of left hand without complication Qualified Codes: S61.412A - Laceration without foreign body of left hand, initial encounter Disposition: 01 HOME, SELF-CARE Condition: Improved Departure-Patient Inst. Referrals: FELICIA LAIRD MD (PCP/Family) Primary Care Physician Patient Instructions: Concussion, Adult ED, Laceration Repair With Glue ED Add. Discharge Instructions: Monitor your wounds for signs of infection such as increasing redness, increasing swelling, puslike drainage, or fever. Return to care promptly if you notice these symptoms. You may have suffered a concussion when you fell. For this reason you should get plenty of rest over the next few days. This includes both mental rest and physical rest. Drink plenty of clear liquids to stay well-hydrated. Take Tylenol (acetaminophen) up to 1000 mg every 6 hours as needed for pain. Stop any activity that increases concussion symptoms such as headache, confusion, vision changes, nausea, irritability, etc. For 7 days after concussion symptoms resolve, avoid any activity that would predispose you to further head injury. Such activities might include using ladders, riding open vehicles, working with livestock, etc. Call or return to care if you have any other questions or concerns. All discharge instructions reviewed with patient and/or family. Voiced understanding. PEYTON GARCIA MD Jan 18, 2023 17:50
--- NOTE | 2023-01-18 18:13 | Diagnostic Imaging Report ---
PROCEDURE: CT head and maxillofacial without contrast. TECHNIQUE: Multiple contiguous axial images were obtained through the head and facial bones without the use of intravenous contrast. Auto Exposure Controls were utilized during the CT exam to meet ALARA standards for radiation dose reduction. INDICATION: Fall, with head and face injury. CT HEAD: FINDINGS: The ventricles and sulci are prominent consistent with the patient's age. No sulcal effacement or midline shift is identified. No acute intra-axial or extra-axial hemorrhage is detected. Cisterns are patent. Visualized paranasal sinuses are clear. IMPRESSION: No acute intracranial process is detected. CT FACE: FINDINGS: The mandible appears to be intact. The zygomatic arches are intact. Maxillary sinus madison, nasal bones, and orbital madison appear to be intact. No facial bone fractures are seen. The visualized paranasal sinuses are clear. Mastoids are well aerated. There does appear to be some mild soft tissue swelling adjacent to the right paramidline mandible, but no fluid collection. IMPRESSION: Mild soft tissue swelling. No facial bone fracture is detected. Dictated by: Dictated on workstation # [id number]
[2023-01-18 18:35] VITALS: BP 112/61
== END 2023-01-18 18:35 | disposition home or self-care (01) ==
LOC: EDUNIT# 17:30 → ER FS 17:32
DX: S61.012A Laceration without foreign body of left thumb without damage to nail, initial encounter (principal); S00.81XA Abrasion of other part of head, initial encounter; Z79.01 Long term (current) use of anticoagulants; W01.0XXA Fall on same level from slipping, tripping and stumbling without subsequent striking against object, initial encounter
CPT/HCPCS: 70450; 70486

== ENCOUNTER 2023-02-12 23:13 | Emergency (ER) | payer MEDICARE, OTHER ==
[~2023-02-12] VITALS: Ht 167.7 cm; Wt 74.0 kg
[2023-02-13 00:10] LABS: BASOPHILS % (AUTO) 0 % (0-10); EOSINOPHILS # (AUTO) 0.1 10^3/uL (0.0-0.3); EOSINOPHILS % (AUTO) 1 % (0-10); HEMATOCRIT 54 % (40-54); HEMOGLOBIN 17.8 g/dL (13.3-17.7); LYMPHOCYTES # (AUTO) 0.8 10^3/uL (1.0-4.0); LYMPHOCYTES % (AUTO) 10 % (12-44); MEAN CORPUSCULAR HEMOGLOBIN 31 pg (25-34); MEAN CORPUSCULAR HGB CONC 33 g/dL (32-36); MEAN CORPUSCULAR VOLUME 93 fL (80-99); MEAN PLATELET VOLUME 9.9 fL (9.0-12.2); MONOCYTES # (AUTO) 0.5 10^3/uL (0.0-1.0); MONOCYTES % (AUTO) 6 % (0-12); NEUTROPHILS # (AUTO) 6.9 10^3/uL (1.8-7.8); NEUTROPHILS % (AUTO) 83 % (42-75); PLATELET COUNT 127 10^3/uL (130-400); WHITE BLOOD COUNT 8.3 10^3/uL (4.3-11.0)
[2023-02-13 00:23] LABS: BILIRUBIN,URINE NEGATIVE (NEGATIVE); CLARITY,URINE CLEAR; COLOR,URINE YELLOW; GLUCOSE, URINE (UA) NEGATIVE (NEGATIVE); KETONES,URINE NEGATIVE (NEGATIVE); LEUKOCYTE ESTERASE ,URINE NEGATIVE (NEGATIVE); NITRITE,URINE NEGATIVE (NEGATIVE); PROTEIN,URINE NEGATIVE (NEGATIVE)
--- NOTE | 2023-02-13 00:25 | ED General ---
General Chief Complaint: Trauma-Non Activation Stated Complaint: SHAKING|HIGH BP| FALL Nursing Triage Note: PT TO FS 05 VIA WC W C/O HTN, SHAKING, WEAKNESS, AND CHILLS THAT BEGAN THIS AFTERNOON. PT HAS SIGNIFICANT BRUISING TO RIGHT SIDE FACE, STATES HE FELL ON 02/06/23 WHILE MOWING HE TRIPPED ON A ROCK AND HIT FACE ON A ROCK. PT DENIES LOC DURING FALL, A&OX4. UNSTEADY GAIT NOTED WHEN TRANSFERRING TO BED. Source of Information: Patient History of Present Illness Date Seen by Provider: Feb 13, 2023 Time Seen by Provider: 00:01 Initial Comments 78-year-old male presenting with family via wheelchair to the emergency department. They complained that he had hypertension with weakness and chills. They felt that he was shaking with standing and were concerned that it was seizure activity because it looked similar to a family member's seizure activity that that has seizures. They are also concerned because he takes Eliquis and while mowing the lawn last weekend he had tripped and fell forward. He hit his face on a rock and had a large goose egg to his right forehead. This is gone down but the blood has settled and spread on the right side of his face. He denies any nausea, vomiting, change in vision, severe headache, focal weakness or numbness. Overall he just feels weak and has an unsteady gait with walking and changing positions. Location Injury Occurred: PT HOME Timing/Duration: 1 Week Severity: Moderate Associated Systoms: No Chest Pain, No Cough, No Diaphoresis, No Fever/Chills; Headaches; No Loss of Appetite, No Malaise, No Nausea/Vomiting, No Rash, No Seizure, No Shortness of Air, No Syncope; Weakness (Generalized weakness) Allergies and Home Medications Allergies Coded Allergies: cefuroxime (Verified Allergy, Unknown, 02/01/19) codeine (Verified Allergy, Unknown, 02/01/19) promethazine (Verified Allergy, Unknown, 02/01/19) propoxyphene (Verified Allergy, Unknown, 02/01/19) Uncoded Allergies: DARVOCET (Allergy, Unknown, 02/01/19) Patient Home Medication List Home Medication List Reviewed: Yes Cyclobenzaprine HCl (Cyclobenzaprine HCl) 5 Mg Tablet, 5 MG PO HS PRN for SPASMS Prescribed by: YOU CHINCHILLA on 10/24/212127 Fluoxetine HCl (Fluoxetine HCl) 20 Mg Capsule, 20 MG PO HS, (Reported) Entered as Reported by: PATY ROPER on 02/01/19 0932 Fluoxetine HCl (Prozac) 10 Mg Capsule, 10 MG PO DAILY Prescribed by: BABATUNDE TEE on 02/21/191811 Lidocaine (Lidocaine 5% Patch) 1 Each Adh..patch, 1 EACH TP Q12H PRN for Neuropathic pain Prescribed by: YOU CHINCHILLA on 10/24/212127 Review of Systems Review of Systems Constitutional: see HPI; No chills, No fever EENTM: No ear discharge, No hearing loss, No ear pain, No blurred vision, No vision loss, No epistaxis, No nose congestion Respiratory: No cough, No short of breath Cardiovascular: No chest pain, No palpitations Gastrointestinal: No abdominal pain, No nausea, No vomiting Genitourinary: No dysuria Musculoskeletal: see HPI Skin: see HPI Psychiatric/Neurological: See HPI Hematologic/Lymphatic: See HPI (Taking Eliquis has easy bruising and bleeding) Past Xwjmjlu-Tpjzln-Yljpbr Hx Patient Social History Tobacco Use?: No Use of E-Cig and/or Vaping dev: No Substance use?: No Alcohol Use?: No Immunizations Up To Date First/Initial COVID19 Vaccinat: J&J Second COVID19 Vaccination Lars: J&J Third COVID19 Vaccination Date: J&J Seasonal Allergies Seasonal Allergies: No Past Medical History Surgery/Hospitalization HX: Pacemaker/Defibrillator, AAA repair Surgeries: Yes (AAA, RASHAUN, ROTATOR CUFF, BACK, HERNIA REPAIR) Cardiac, CABG, Vascular Surgery Respiratory: No Cardiac: Yes (AAA, CABG) Aneurysm, Atrial Fibrillation, Heart Attack, High Cholesterol, Hypertension Neurological: Yes TIA Genitourinary: No Gastrointestinal: Yes Gastroesophageal Reflux Musculoskeletal: Yes Degenerate Disk Disease Endocrine: No HEENT: Yes Cataract Cancer: Yes Skin Psychosocial: No Integumentary: No Blood Disorders: No Physical Exam Vital Signs Vital Signs - First Documented Capillary Refill : Less Than 3 Seconds Height, Weight, BMI Height: 5'6.00" Weight: 154lbs. 0oz. 69.776615im; 26.00 BMI Method:Stated General Appearance: No Apparent Distress, WD/WN, Other (Hematoma to the right f orehead with bruising extending down the right side of his face no crepitus or step-off noted.) Eyes: Right Eye Other (Subconjunctival hemorrhage on the right eye); Bilateral Eye PERRL, Bilateral Eye EOMI HEENT: PERRL/EOMI, TMs Normal, Pharynx Normal, Moist Mucous Membranes, Other (Negative castano sign, negative raccoon sign, no CSF otorrhea, no CSF rhinorrhea, no hemotympanums. He does have hematoma to the right forehead and bruising to the right side of his face.) Neck: Full Range of Motion, Normal Inspection, Non Tender, Supple Respiratory: Chest Non Tender, Lungs Clear, Normal Breath Sounds, No Accessory Muscle Use, No Respiratory Distress Cardiovascular: Regular Rate, Rhythm, Normal Peripheral Pulses Gastrointestinal: Normal Bowel Sounds, No Pulsatile Mass, Non Tender, Soft Rectal: Deferred Extremity: Normal Capillary Refill, Normal Inspection, Pedal Edema (Trace to 1+ bilateral lower extremity edema) Neurologic/Psychiatric: Alert, Oriented x3, No Motor/Sensory Deficits, Normal Mood/Affect, 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 Norm as Tested Skin: Warm/Dry, Ecchymosis (Bruising to the right side of his face) Progress/Results/Core Measures Suspected Sepsis Recent Fever Within 48 Hours: No Infection Criteria Present: None New/Unexplained Altered Menta: No SIRS Temperature: Pulse: 77 Respiratory Rate: 20 Laboratory Tests 02/12/23 23:32: White Blood Count 8.3 Blood Pressure 163 /76 Mean: 105 Laboratory Tests 02/12/23 23:32: Creatinine 0.90, INR Comment 1.1, Platelet Count 127L, Total Bilirubin 0.7 Results/Orders Lab Results Laboratory Tests Test 02/12/23 23:32 02/13/23 00:17 Range/Units White Blood Count 8.3 4.3-11.0 10^3/uL Red Blood Count 5.83 H 4.30-5.52 10^6/uL Hemoglobin 17.8 H 13.3-17.7 g/dL Hematocrit 54 40-54 % Mean Corpuscular Volume 93 80-99 fL Mean Corpuscular Hemoglobin 31 25-34 pg Mean Corpuscular Hemoglobin Concent 33 32-36 g/dL Red Cell Distribution Width 14.0 10.0-14.5 % Platelet Count 127 L 130-400 10^3/uL Mean Platelet Volume 9.9 9.0-12.2 fL Immature Granulocyte % (Auto) 0 % Neutrophils (%) (Auto) 83 H 42-75 % Lymphocytes (%) (Auto) 10 L 12-44 % Monocytes (%) (Auto) 6 0-12 % Eosinophils (%) (Auto) 1 0-10 % Basophils (%) (Auto) 0 0-10 % Neutrophils # (Auto) 6.9 1.8-7.8 10^3/uL Lymphocytes # (Auto) 0.8 L 1.0-4.0 10^3/uL Monocytes # (Auto) 0.5 0.0-1.0 10^3/uL Eosinophils # (Auto) 0.1 0.0-0.3 10^3/uL Basophils # (Auto) 0.0 0.0-0.1 10^3/uL Immature Granulocyte # (Auto) 0.0 0.0-0.1 10^3/uL Percent Immature Platelet Fraction 3.3 0.0-7.6 % Prothrombin Time 14.2 12.2-14.7 SEC INR Comment 1.1 0.8-1.4 Activated Partial Thromboplast Time 39 H 24-35 SEC Sodium Level 138 135-145 MMOL/L Potassium Level 4.1 3.6-5.0 MMOL/L Chloride Level 101 98-107 MMOL/L Carbon Dioxide Level 25 21-32 MMOL/L Anion Gap 12 5-14 MMOL/L Blood Urea Nitrogen 19 H 7-18 MG/DL Creatinine 0.90 0.60-1.30 MG/DL Estimat Glomerular Filtration Rate 87 BUN/Creatinine Ratio 21 Glucose Level 115 H 70-105 MG/DL Calcium Level 9.5 8.5-10.1 MG/DL Corrected Calcium 9.4 8.5-10.1 MG/DL Magnesium Level 1.7 1.6-2.4 MG/DL Total Bilirubin 0.7 0.1-1.0 MG/DL Aspartate Amino Transf (AST/SGOT) 20 5-34 U/L Alanine Aminotransferase (ALT/SGPT) 16 0-55 U/L Alkaline Phosphatase 54 40-136 U/L Troponin I < 0.30 <0.30 NG/ML Pro-B-Type Natriuretic Peptide 1244.0 H <450.0 PG/ML Total Protein 7.4 6.4-8.2 GM/DL Albumin 4.1 3.2-4.5 GM/DL Lipase 34 8-78 U/L Urine Color YELLOW Urine Clarity CLEAR Urine pH 6.0 5-9 Urine Specific Bud 1.020 1.016-1.022 Urine Protein NEGATIVE NEGATIVE Urine Glucose (UA) NEGATIVE NEGATIVE Urine Ketones NEGATIVE NEGATIVE Urine Nitrite NEGATIVE NEGATIVE Urine Bilirubin NEGATIVE NEGATIVE Urine Urobilinogen 1.0 < = 1.0 MG/DL Urine Leukocyte Esterase NEGATIVE NEGATIVE Urine RBC (Auto) NEGATIVE NEGATIVE Urine RBC 2-5 H /HPF Urine WBC 2-5 /HPF Urine Squamous Epithelial Cells 2-5 /HPF Urine Crystals NONE /LPF Urine Bacteria FEW H /HPF Urine Casts NONE /LPF Urine Mucus MODERATE H /LPF Urine Culture Indicated YES My Orders Orders - RICCARDO BRAUN MD Cbc With Automated Diff (02/12/23 23:59) Magnesium (02/12/23 23:59) Ekg Tracing (02/12/23 23:59) Comprehensive Metabolic Panel (02/12/23 23:59) Protime With Inr (02/12/23 23:59) Partial Thromboplastin Time (02/12/23 23:59) O2 (02/12/23 23:59) Monitor-Rhythm Ecg Trace Only (02/12/23 23:59) Ed Iv/Invasive Line Start (02/12/23 23:59) Lipase (02/12/23 23:59) Troponin I Fs (02/12/23 23:59) Probnp Fs (02/12/23 23:59) Ua Culture If Indicated (02/12/23 23:59) Ct Head Wo (02/13/23 23:59) Urine Culture (02/13/23 00:17) Vital Signs/I&O 02/12/23 02/12/23 02/13/23 23:21 23:21 02:32 Temp 37.0 37.0 Pulse 77 77 72 Resp 20 20 18 B/P (MAP) 163/76 (105) 163/76 (105) 126/73 Pulse Ox 93 93 96 O2 Delivery Room Air Room Air Room Air Capillary Refill : Less Than 3 Seconds Blood Pressure Mean: 105 Progress Note #1: Progress Note Potential diagnosis of intracranial hemorrhage, skull fracture, electrolyte abnormality, urinary tract infection, sepsis, anemia. Obtain peripheral IV access and send labs for complete blood count, comprehensive metabolic profile, urinalysis, coagulation factors. CT scan of the head to evaluate for possible intracranial hemorrhage or skull fracture since he had a fall on February 06. Progress Note #2: Progress Note On my personal review of the CT scan of the head without IV contrast I did not appreciate any acute intracranial hemorrhage or skull fracture. His complete blood count showed a normal white blood cell count of 8.3 and hemoglobin elevated to 17.8. His comprehensive metabolic profile did not show any acute electrolyte abnormality to account for his symptoms. His urinalysis showed mildly elevated specific gravity of 1.020. She had 2-5 red blood cells with a few bacteria and a urine culture was reflexed. His proBNP was elevated to 1244. He had negative troponin less than 0.3. Progress Note #3: Progress Note I reviewed the radiologist report on the CT scan of the head without IV contrast. The felt it was negative for any acute traumatic intracranial abnormality and only showed chronic senescent changes. I reassured patient and family. Patient states that he had not wanted to come in the first place and only came at the insistence of for female family members. He was able to ambulate here in the ED with out assistance. Encouraged follow-up through the clinic and given information about fall precautions. ECG Initial ECG Impression Date: Feb 13, 2023 Initial ECG Impression Time: 00:44 Initial ECG Rate: 66 Initial ECG Rhythm: Normal Sinus Initial ECG Comparisson: Changed (Prior tracing from February 21, 2019 was paced and tonight he is not paced.) Comment On my personal interpretation and review his electrocardiogram shows a junctional rhythm with T wave flattening. He has no acute ST elevation. Heart rate 66 bpm. OK interval 99 ms. QT interval 401 ms with a QTc interval 415 ms. Overall he has changed from his prior tracing of February 21, 2019 when he was paced. Diagnostic Imaging Diagonstic Imaging: CT Plain Films/CT/US/NM/MRI: head Comments CT head without IV contrast impression: 1. Head CT negative for acute traumatic intracranial abnormality. 2. Chronic senescent changes with mild ischemic microangiopathy, age- appropriate cerebral volume loss. No hemorrhage. Read by radiologist Dr. Mayank Hall MD at 0039 and faxed at [phone] Reviewed: Reviewed by Me Departure Impression Primary Impression: Unsteady gait when walking Additional Impressions: Generalized weakness Fall Qualified Codes: W19.XXXA - Unspecified fall, initial encounter Contusion of face Qualified Codes: S00.83XA - Contusion of other part of head, initial encounter Hematoma without fracture or open wound Dehydration Disposition: HOME, SELF-CARE Condition: Stable Departure-Patient Inst. Decision time for Depature: 02:19 Referrals: FELICIA LAIRD MD (PCP/Family) Primary Care Physician Patient Instructions: Preventing Falls ED, Weakness ED, Minor Head Injury, Adult ED, [place] ED, Dehydration, Adult ED Add. Discharge Instructions: Try to stay well-hydrated and drink more fluids. Check back with the clinic about the increased weakness and shaking. They may need to do additional testing but your blood work and CAT scan of your head tonight did not show any acute emergent findings. All discharge instructions reviewed with patient and/or family. Voiced understanding. RICCARDO BRAUN MD Feb 13, 2023 00:25
[2023-02-13 00:31] LABS: BACTERIA,URINE FEW /HPF
[2023-02-13 00:33] LABS: INR 1.1 (0.8-1.4); PROTHROMBIN TIME PATIENT 14.2 SEC (12.2-14.7)
[2023-02-13 00:35] LABS: BUN/CREATININE RATIO 21; CARBON DIOXIDE 25 MMOL/L (21-32); CHLORIDE 101 MMOL/L (98-107); GFR ESTIMATED 87; GLUCOSE 115 MG/DL (70-105); POTASSIUM 4.1 MMOL/L (3.6-5.0); SODIUM 138 MMOL/L (135-145)
[2023-02-13 00:36] LABS: ALANINE AMINOTRANSFERASE 16 U/L (0-55); ALBUMIN 4.1 GM/DL (3.2-4.5); ALKALINE PHOSPHATASE 54 U/L (40-136); BILIRUBIN,TOTAL 0.7 MG/DL (0.1-1.0); CALCIUM 9.5 MG/DL (8.5-10.1); LIPASE 34 U/L (8-78); MAGNESIUM 1.7 MG/DL (1.6-2.4); TOTAL PROTEIN 7.4 GM/DL (6.4-8.2)
[2023-02-13 02:32] VITALS: BP 126/73
--- NOTE | 2023-02-13 07:17 | Diagnostic Imaging Report ---
PROCEDURE: CT head without contrast. TECHNIQUE: Multiple contiguous axial images were obtained through the brain without the use of intravenous contrast. Auto Exposure Controls were utilized during the CT exam to meet ALARA standards for radiation dose reduction. DATE: February 13, 2023. COMPARISON: CT head and maxillofacial area January 18, 2023. INDICATION: 78-year-old male, fall. Head injury and pain. FINDINGS: There is a hematoma in the region of the right forehead. There is no identified skull fracture. There is proportional prominence of the ventricles and additional CSF spaces consistent with moderate cerebral volume loss. There is no mass effect or midline shift. There is no acute intracranial hemorrhage. There is no abnormal extra-axial fluid collection. The visualized portions of the paranasal sinuses, mastoid air cells and middle ears are well aerated. IMPRESSION: 1. No identified acute intracranial abnormality. 2. Hematoma of the right forehead. Dictated by: Dictated on workstation # [id number]
== END 2023-02-13 02:32 | disposition home or self-care (01) ==
LOC: EDUNIT# 23:13 → ER FS 23:15
DX: S00.83XA Contusion of other part of head, initial encounter (principal); E86.0 Dehydration; R26.81 Unsteadiness on feet; R53.1 Weakness; H11.31 Conjunctival hemorrhage, right eye; R79.89 Other specified abnormal findings of blood chemistry; W01.198A Fall on same level from slipping, tripping and stumbling with subsequent striking against other object, initial encounter
CPT/HCPCS: 36415; 70450; 80053; 81000; 83690; 83735; 83880; 84484; 85025; 85610; 85730; 87088; 93005; 93041